=== PATIENT | male | born 1975 | race Caucasian/White ===

== ENCOUNTER 2020-01-22 07:15 | Emergency (ER) | payer OTHER, SELFPAY ==
[2020-01-22 07:22] VITALS: BP 114/75; PULSE 95; RESP 18; TEMP 37.1; O2SAT 98; BMI 17.9
--- NOTE | 2020-01-22 07:44 | XR_ITS ---
EXAMINATION: XR HIP, LEFT CLINICAL INFORMATION: Pain for one week. No trauma. COMPARISON: None TECHNIQUE: Two views of the left hip and pelvis one view. FINDINGS: LEFT HIP: Mild left hip arthritis, with acetabular rim spurring, femoral head and neck collar osteophytes. There is a transversely oriented sclerotic band extending across the femoral neck. This could be related to an undisplaced fracture plane, or could represent collar osteophytes at the femoral head and neck junction projected over this region. Cystic foci projected over the femoral neck, probably degenerative in nature. PELVIS: Mild right hip arthritis. SI joints, symphysis pubis are intact. The pelvic bones are intact. No suspicious soft tissue calcification. Visualized bowel pattern is unremarkable. IMPRESSION: 1. Mild left hip arthritis. There is a band of sclerosis extending across the femoral neck. This could be related to a fracture plane or could represent collar osteophytes projected over this region. Please clinically correlate. Further evaluation as clinically warranted. 2. Mild right hip arthritis.
--- NOTE | 2020-01-22 07:48 | ED.LOWEXIN ---
HPI - Extremity Injury (Lower) General Chief Complaint: Extremity Injury, Lower Stated Complaint: hip pain Time Seen by Provider: 01/22/20 07:44 Source: patient Mode of arrival: ambulatory Limitations: no limitations History of Present Illness HPI Narrative: Left hip pain for the past week, patient declined any recent injury or fall, patient has been walking with a cane because of the pain, patient was seen and evaluated by his primary doctor and was prescribed Flexeril patient reported is not relieving pain. Related Data Home Medications Medication Instructions Recorded Confirmed atorvastatin 20 mg tablet 20 mg PO DAILY 01/17/20 Previous Rx's Medication Instructions Recorded cyclobenzaprine 5 mg tablet 5 mg PO BEDTIME PRN #15 tab 01/17/20 ibuprofen 600 mg PO Q8H PRN #30 tab 01/22/20 Allergies Allergy/AdvReac Type Severity Reaction Status Date / Time No Known Allergies Allergy Unverified 12/22/19 15:08 [No Known Allergies*] Review of Systems Review of Systems: Yes all other systems are reviewed and are negative Neurologic: Reports Abnormal speech present [facility] Past Medical History Medical History Hypercholesteremia Social History Social History Advance Directives: No Advance Directives Information Provided: No Physical Exam Vital Signs: Vital Signs: Vital Signs Temp Pulse Resp BP Pulse Ox 01/22/20 07:22 98.8 F 95 18 114/75 98 Body Mass Index 17.9 Const: General: cooperative and healthy appearing Orientation/consciousness: oriented to person HENMT: Head: Yes normal to inspection Ears: hearing grossly normal bilaterally General nose exam: Normal external nose present Eyes: General: appearance normal, both eyes and all related structures Neck: Neck: Yes normal visual inspection Chest: Chest palpation & inspection: normal inspection of the chest Resp: Effort & Inspection: normal respiratory effort Cardio: Jugular venous distension: no JVD Rate: regular rate GI: Inspection: Yes normal to inspection Skin: General skin exam: no rashes or lesions noted Neuro: General: oriented to person Cranial nerves: Yes CN's II-XII intact bilaterally Cognition (Neuro): normal cognition Speech: Abnormal speech present Extrem: General: Yes normal to inspection and Yes full ROM Left lower extremity: normal to inspection, full ROM, normal capillary refill and no joint enlargement; no cyanosis and no edema Course Course Course Narrative: 44-year-old male sustained left hip pain for the past week not relieved by muscle relaxant prescribed by his PCP. Will get hep x-ray to rule out fracture verses arthritis , and give the patient NSAIDs. MDM - Extremity Injury (Lower) MDM Narrative Medical decision making narrative: assessment and plan. 44-year-old male with left hip pain for a week with no trauma, x-ray shows no fracture. Likely musculoskeletal will start the patient on NSAIDs and instructed to follow-up with PCP. Discharge Plan Discharge Clinical Impression: Hip strain Qualifiers: Encounter type: initial encounter Laterality: left Qualified Code(s): S76.012A - Strain of muscle, fascia and tendon of left hip, initial encounter Patient Disposition: Home, Self-Care Instructions: Musculoskeletal Pain (ED) Prescriptions: New ibuprofen 600 mg tablet 600 mg PO Q8H PRN (Reason: pain) Qty: 30 RF: 0 No Action atorvastatin 20 mg tablet 20 mg PO DAILY RF: 0 cyclobenzaprine 5 mg tablet 5 mg PO BEDTIME PRN (Reason: muscle spasm) Qty: 15 RF: 0 Referrals: Felipe Russo, [facility] [Primary Care Provider] - 2 days
[2020-01-22] MEDS: Ibuprofen 800 MG TABLET PO (07:49)
== END 2020-01-22 08:33 | disposition home or self-care (01) ==
PROVIDERS: Emergency Provider Emergency Medicine; PCP Nurse Practitioner Family
DX: S76.012A Strain of muscle, fascia and tendon of left hip, initial encounter (principal); X58.XXXA Exposure to other specified factors, initial encounter; Y93.9 Activity, unspecified; Y92.9 Unspecified place or not applicable; Y99.9 Unspecified external cause status
CPT/HCPCS: 73502; 99283

== ENCOUNTER 2020-03-30 07:48 | Emergency (ER) | payer OTHER, SELFPAY ==
[2020-03-30 08:01] VITALS: BP 124/79; PULSE 107; RESP 18; TEMP 36.6; O2SAT 98; BMI 24.0
--- NOTE | 2020-03-30 08:03 | XR_ITS ---
EXAMINATION: XR KNEE, LEFT CLINICAL INFORMATION: Knee pain COMPARISON: None TECHNIQUE: Four views of the left knee. FINDINGS: Bones and soft tissues are normal. No acute fracture or joint effusion. Alignment is anatomic. Joint spaces are well maintained. No abnormal soft tissue calcification. XR/XR knee LT 2V IMPRESSION: Unremarkable left knee exam.
--- NOTE | 2020-03-30 08:16 | ED_ITS ---
HPI - Extremity Problem General Chief complaint: Extremity Problem Stated complaint: leg pain Time Seen by Provider: 03/30/20 08:03 History of Present Illness HPI Narrative: Patient is a 44-year-old male complaining of left knee pain. Patient denies any trauma. No fever no chills no cough no congestion or upper respiratory symptoms. Been constantly using his knees. Complaining of increasing pain. There is no systemic complaints no chest pain or shortness of breath no diaphoresis. No leg swelling. No history of travel. Pain is worsened with movement. Patient is from home. History of similar pain given Motrin in the past. Related Data Previous Rx's Medication Instructions Recorded ibuprofen 600 mg PO Q8H PRN #30 tab 01/22/20 atorvastatin 20 mg tablet 20 mg PO DAILY #30 tab 03/12/20 prednisone 20 mg tablet 20 mg PO .COMPLEX #18 tab 03/26/20 Allergies Allergy/AdvReac Type Severity Reaction Status Date / Time No Known Allergies Allergy Verified 03/21/20 13:26 [No Known Allergies*] Review of Systems Review of Systems: Constitutional: No Weight loss, No Fever, No Chills, No Night Sweats, No Fatigue, No Malaise ENT/Mouth: No Hearing loss, No Ear Pain, No Nasal Congestion, No Sinus Pain, No Hoarseness, No sore throat, No Rhinorrhea, No Swallowing Difficulty Eyes: No Eye Pain, No Swelling, No Redness, No Foreign Body, No Discharge, No Vision Changes Cardiovascular: No Chest Pain, No SOB, No Dyspnea on Exertion, No Orthopnea, No Edema, No Palpitations Respiratory: No Cough, No Sputum, No Wheezing, No Smoke Exposure, No Dyspnea Gastrointestinal: No Nausea, No Vomiting, No Diarrhea, No Constipation, No abdominal Pain, No Hematochezia, No Melena Genitourinary: no irregular bleeding, No Dysuria, No Urinary Frequency, No Hematuria, No Urinary Incontinence, No Urgency, No Flank Pain, No Urinary Flow Changes, No Hesitancy Musculoskeletal: Positive pain to the left knee Skin: No Skin Lesions, No rash Neuro: No Weakness, No Numbness, No Paresthesias, No Loss of Consciousness, No Dizziness, No Headache Psych: No Anxiety/Panic, No Depression, No SI/HI/AH/VH, No Social Issues, Heme/Lymph: No Bruising, No Bleeding,No Lymphadenopathy Endocrine: No Polyuria, No Polydipsia, No Temperature Intolerance COUNTS INCLUDE 234 BEDS AT THE [facility] Past Medical History Attestation statement: The following information was validated with the patient. Medical History Hypercholesteremia Physical exam Umbilical hernia Family History Family History Father No problems noted. Mother Skin cancer Maternal Grandmother Colon cancer Social History Social History Alcohol intake: current Alcohol intake frequency: a few times a month Smoking Status: Never smoker Advance Directives: No Advance Directives Information Provided: Yes Physical Exam Vital Signs: Vital Signs: Last Vital Signs Temp 97.8 F 03/30/20 08:01 Pulse 107 H 03/30/20 08:01 Resp 18 03/30/20 08:01 BP 124/79 03/30/20 08:01 Pulse Ox 98 03/30/20 08:01 Body Mass Index 24.0 Appearance: Alert. Oriented X3. No acute distress. Eyes: Pupils equal, round and reactive to light. ENT: Pharynx normal. Neck: Normal inspection. Neck supple. No lymph nodes noted. No crepitus CVS: Normal heart rate and rhythm. Pulses normal. Normal S1 and S2 Respiratory: No respiratory distress. Breath sounds normal. No Wheezing. No rales Abdomen: Soft and nontender. No rigidity. No distention. good BS x4 Skin: Skin warm and dry. Normal skin color. Normal skin turgor. Extremities: No lower extremity edema. Neurovascular intact to all extremities. Pain on full flexion of the left knee. There is no patellar tenderness there is no medial or lateral collateral ligament tenderness. Range of motion is intact at hip and also knee. Distal pulses are intact skin is intact. Neuro: Oriented X 3. No motor deficit. No sensory deficit. Moving all extermities. No slurred speech MDM - Extremity (Nontraumatic) MDM Narrative Medical decision making narrative: X-ray showed no acute fracture. Will discharge patient home close follow-up on outpatient basis. Motrin for pain. Discharge Plan Discharge Clinical Impression: Arthritis Patient Disposition: Home, Self-Care Instructions: Arthritis (ED) Prescriptions: No Action atorvastatin 20 mg tablet 20 mg PO DAILY Qty: 30 RF: 2 ibuprofen 600 mg tablet 600 mg PO Q8H PRN (Reason: pain) Qty: 30 RF: 0 prednisone 20 mg tablet 20 mg PO .COMPLEX Qty: 18 RF: 0 Referrals: Felipe Russo FNP-BC [Primary Care Provider] - 2 days
== END 2020-03-30 09:41 | disposition home or self-care (01) ==
PROVIDERS: Emergency Provider Emergency Medicine Emergency Medical Services; PCP Nurse Practitioner Family
DX: M17.12 Unilateral primary osteoarthritis, left knee (principal); M25.562 Pain in left knee; Z79.899 Other long term (current) drug therapy
CPT/HCPCS: 73560; 99283

== ENCOUNTER 2020-04-17 06:04 | Outpatient (REF) | payer OTHER, SELFPAY ==
[2020-04-17 12:11] LABS: TSH reflex Free T4 4.16 mIU/mL (0.32-4.0)
[2020-04-17 12:21] LABS: Alanine Aminotransferase 111 U/L (0-40); Albumin Level 4.1 g/dL (3.5-5.0); Alkaline Phosphatase 105 U/L (39-117); Anion Gap 13 (12-20); Aspartate Amino Transferase 31 U/L (5-37); Bilirubin Total 0.4 mg/dL (0.0-1.0); Blood Urea Nitrogen 10 mg/dL (9-16); Calcium 9.3 mg/dL (8.4-10.2); Carbon Dioxide 30 mmol/L (22-29); Chloride 105 mmol/L (96-108); Cholesterol 142 mg/dL; Estimated Glomerular Filt Rate > 60; Glucose Fasting 81 mg/dL (60-99); HDL Cholesterol 46 mg/dL; LDL Cholesterol Calculated 66 mg/dl; Potassium 4.6 mmol/l (3.3-5.1); Sodium 143 mmol/L (135-145); Total Protein 6.5 g/dL (6.5-8.0); Triglycerides 151 mg/dL
== END 2020-04-17 06:05 | disposition home or self-care (01) ==
LOC: HO.HMGCLDS 06:04
PROVIDERS: PCP Nurse Practitioner Family; Visit Provider Nurse Practitioner Family
DX: Z00.00 Encounter for general adult medical examination without abnormal findings (principal); R74.8 Abnormal levels of other serum enzymes
CPT/HCPCS: 36415; 80053; 80061; 84439; 84443

== ENCOUNTER 2020-04-23 08:55 | Outpatient (REF) | payer OTHER, SELFPAY ==
--- NOTE | 2020-04-23 08:59 | US_ITS ---
EXAMINATION: US ABDOMEN COMPLETE CLINICAL INFORMATION: Elevated LFTs. COMPARISON: None TECHNIQUE: Real-time imaging of the abdominal viscera. FINDINGS: PANCREAS: Normal. ABDOMINAL AORTA: The proximal, mid, and distal segments are normal in caliber. INFERIOR VENA CAVA: Visualized portions are normal. LIVER: Normal. The liver is normal in size. The liver contour is normal. Parenchymal echogenicity is normal. No focal hepatic lesion. There is no intrahepatic biliary duct dilatation seen. GALLBLADDER: The gallbladder is physiologically distended. There is a 2 mm echogenic foci adjacent to the gallbladder wall measuring 2 mm. This does not move or shadow. This probably represent small gallbladder wall polyp. It is difficult to exclude a nonshadowing adherent small gallstone. Gallbladder wall is normal in thickness. There is no pericholecystic fluid. COMMON BILE DUCT: Normal in caliber measuring 0.45 cm in diameter. RIGHT KIDNEY: Normal. No hydronephrosis. No renal calculi or focal parenchymal lesions. The kidney measures 10.4 cm in maximum dimension. LEFT KIDNEY: Normal. No hydronephrosis. No renal calculi or focal parenchymal lesions. The kidney measures 11.3 cm in maximum dimension. SPLEEN: Normal. The spleen measures 10.5 cm in maximum dimension. FREE FLUID: None. US/US abdomen complete IMPRESSION: Small echogenic nonmobile nonshadowing 2 mm density adjacent to the gallbladder wall probably representing a gallbladder wall polyp. Otherwise unremarkable exam.
== END 2020-04-23 08:56 | disposition home or self-care (01) ==
LOC: HO.HMGCX 08:55
PROVIDERS: PCP Nurse Practitioner Family; Visit Provider Nurse Practitioner Family
DX: R74.8 Abnormal levels of other serum enzymes (principal)
CPT/HCPCS: 76700

== ENCOUNTER 2020-06-26 12:16 | Outpatient (REF) | payer OTHER, SELFPAY ==
--- NOTE | ~2020-06-26 | XR_ITS ---
EXAMINATION: XR KNEE, RIGHT CLINICAL INFORMATION: M25.461 - Effusion, right knee COMPARISON: None TECHNIQUE: Four views of the right knee. FINDINGS: There is no fracture or dislocation or destructive process. No joint narrowing or erosive change or chondrocalcinosis. There is no visible suprapatellar effusion. Hoffa's fat pad appears normal. XR/XR knee RT 4V IMPRESSION: Normal right knee.
[2020-06-26 15:17] LABS: TSH reflex Free T4 1.79 uIU/mL (0.32-4.0)
[2020-06-27 08:45] LABS: HBsAGNum1 0.19 S/CO (0.00-0.99); Hepatitis A Antibody IgM 0.13 Index (0-0.79); Hepatitis B Surface Antigen Negative (Negative); ~Hepatitis A Antibody IgM Nonreactive (Nonreactive)
[2020-06-27 09:03] LABS: HBc Num1 0.04 S/CO (0.00-0.79); Hepatitis B Core Antibody Nonreactive (Nonreactive); ~HepC Num1 0.12 S/CO (0.00-0.79); ~Hepatitis B Surface Antibody NONREACTIVE (Nonreactive); ~Hepatitis C Antibody Nonreactive (Nonreactive)
[2020-06-27 21:27] LABS: Thyroid Peroxidase Antibodies 1 IU/mL (<9)
== END 2020-06-26 12:17 | disposition home or self-care (01) ==
LOC: HO.HMGCX 12:16
PROVIDERS: PCP Nurse Practitioner Family; Visit Provider Nurse Practitioner Family
DX: M25.461 Effusion, right knee (principal); R79.89 Other specified abnormal findings of blood chemistry; R74.8 Abnormal levels of other serum enzymes
CPT/HCPCS: 36415; 73564; 84443; 86376; 86704; 86706; 86709; 86803; 87340

== ENCOUNTER → 2020-07-13 13:40 | Outpatient (BNVA) | payer OTHER, SELFPAY | PROVIDERS: PCP Nurse Practitioner Family; Visit Provider Physician Assistant | DX: M17.12 Unilateral primary osteoarthritis, left knee (principal) | CPT/HCPCS: 20610; 99202 ==

== ENCOUNTER 2020-07-22 16:51 | Emergency (ER) | payer OTHER, SELFPAY ==
[2020-07-22 16:59] VITALS: BP 115/67; PULSE 90; RESP 18; TEMP 37.2; O2SAT 99; BMI 22.6
--- NOTE | 2020-07-22 17:40 | ED.EXTPRO ---
HPI - Extremity Problem General Chief complaint: Extremity Problem Stated complaint: leg pain Source: patient and family Mode of arrival: ambulatory Limitations: no limitations History of Present Illness HPI Narrative: 44-year-old male with known history of arthritis presents for left-sided hip and thigh pain. States that was given cyclobenzaprine and did have physical therapy in the past which helped him. He has run out of medications, does not stay to have any injuries, falls, denies fevers, chills, chest pain or pressure, palpitations, symptoms indicating cauda equina, dysuria, hematuria, abdominal pain, abdominal distention, and loss of sensation. MD Complaint: extremity pain Onset (ago): month(s) Pain Consistency: constant Location: left and lower extremity Quality: aching Relieving factors: nothing Exacerbating factors: range of motion and weight bearing Associated symptoms: denies other symptoms Related Data Previous Rx's Medication Instructions Recorded lidocaine 5 % topical patch 1 patch TOPICAL DAILY #15 ea 05/29/20 naproxen 500 mg tablet 500 mg PO BID PRN #60 tab 05/29/20 atorvastatin 20 mg tablet 20 mg PO DAILY #30 tab 06/22/20 prednisone 20 mg tablet 20 mg PO .COMPLEX #18 tab 07/02/20 cyclobenzaprine 10 mg PO BEDTIME PRN #10 tab 07/22/20 diclofenac sodium [Arthritis Pain 4 g TOPICAL BID PRN #100 g 07/22/20 (diclofenac)] ibuprofen 600 mg PO Q8H PRN #90 tab 07/22/20 Allergies Allergy/AdvReac Type Severity Reaction Status Date / Time No Known Allergies Allergy Verified 07/13/20 13:50 [No Known Allergies*] Review of Systems Review of Systems: Constitutional: No Fever, No Chills ENT/Mouth: No Ear Pain, No Hoarseness, No sore throat Eyes: No Eye Pain, No Swelling, No Redness, No Foreign Body Cardiovascular: No Chest Pain, No SOB Respiratory: No Cough, No Dyspnea Gastrointestinal: No Nausea, No Vomiting, No Diarrhea, No abdominal Pain Genitourinary: No Dysuria, No Hematuria Musculoskeletal: positive left hip and left thigh pain, No Myalgias, No Joint Swelling Skin: No Skin lacerations, No rash Neuro: No Weakness, No Numbness, No Paresthesias, No Loss of Consciousness, No Dizziness, No Headache Psych: No Anxiety/Panic, No Depression Heme/Lymph: no easy bruising, no Lymphadenopathy Endocrine: No Polyuria, No Polydipsia Yes all other systems are reviewed and are negative [facility] Past Medical History Attestation statement: The following information was validated with the patient. Source: old records reviewed Medical History Hypercholesteremia Physical exam Umbilical hernia Family History Family History Father No problems noted. Mother Skin cancer Maternal Grandmother Colon cancer Social History Social History Alcohol intake: current Alcohol intake frequency: a few times a month Smoking Status: Never smoker Advance Directives: No Advance Directives Information Provided: No Current occupational status: employed Current occupation: maintenance Physical Exam Vital Signs: Vital Signs: Last Vital Signs Temp 98.9 F 07/22/20 16:59 Pulse 90 07/22/20 16:59 Resp 18 07/22/20 16:59 BP 115/67 07/22/20 16:59 Pulse Ox 99 07/22/20 16:59 Body Mass Index 22.6 Appearance: Alert. Oriented X3. No acute distress. Eyes: Pupils equal, round and reactive to light. ENT: Pharynx normal. Neck: Normal inspection. Neck supple. CVS: Normal heart rate and rhythm. Pulses normal. Respiratory: No respiratory distress. Breath sounds normal. Abdomen: Soft and nontender. Skin: Skin warm and dry. Normal skin color. Normal skin turgor. Extremities: No lower extremity edema. Full range of motion to all extremities, strength 5/5, gait awkward per baseline but balanced Neuro: No motor deficit. No sensory deficit. Cranial nerves 2-12 intact Course Course Course Narrative: 44-year-old male with known arthritis presents with left hip and thigh pain. Patient does have full range of motion to hip, knee, ankle, strength 5/5. Patient denies difficulty urinating, denies testicular pain, penile pain, penile discharge, or trauma. Denies pain or bleeding with bowel movements. No abdominal pain, abdominal exam is negative. No edema, no calf tenderness, at this time I do not feel patient is at risk for DVT. Does not smoke, no history of cancer, not on any hormone replacements, no recent surgical history or travel. Plan of care is for Motrin, cyclobenzaprine, referral to Pain Management and Orthopedics. Patient's brother is with him, patient's brother verbalized understanding of and agrees to plan of care. MDM - Extremity (Nontraumatic) MDM Narrative Medical decision making narrative: Arthritis Discharge Plan Discharge Clinical Impression: Arthritis Patient Disposition: Home, Self-Care Instructions: Arthritis (ED) Additional Instructions: You were evaluated for hip pain. You do have arthritis, please follow-up with Pain Management as you will need physical therapy for further care. If pain persists please follow-up with orthopedics for evaluation. I prescribed diclofenac ointment, please apply this to your hip and knee as needed twice a day. I prescribed a muscle relaxer, cyclobenzaprine. Take this medication at night. This medication can increase risk for falls, cause drowsiness, and delay reaction time. Please use caution when taking this medication. Use Motrin as needed every 8 hours for pain. You may alternate with Tylenol 650 mg. Thank you for choosing this emergency department for evaluation. Please follow-up with primary care physician as needed. Return to the emergency department for any new, concerning, or worsening symptoms. Prescriptions: New diclofenac sodium [Arthritis Pain (diclofenac)] 1 % gel 4 g topical BID PRN (Reason: pain) Qty: 100 RF: 0 cyclobenzaprine 10 mg tablet 10 mg PO BEDTIME PRN (Reason: muscle spasm) Qty: 10 RF: 0 ibuprofen 600 mg tablet 600 mg PO Q8H PRN (Reason: pain) Qty: 90 RF: 0 No Action atorvastatin 20 mg tablet 20 mg PO DAILY Qty: 30 RF: 2 prednisone 20 mg tablet 20 mg PO .COMPLEX Qty: 18 RF: 0 naproxen 500 mg tablet 500 mg PO BID PRN (Reason: pain) Qty: 60 RF: 0 lidocaine 5 % adhesive patch,medicated 1 patch topical DAILY Qty: 15 RF: 0 Referrals: Artemio Rutledge MD [Physician] - 2 days (Arthritis) Jesus Alberto Armando PA-C [Physician [employer]] - 2 days (Arthritis) Stand Alone Forms: Work/School Release Interventions: ED Discharge Assessment Last Done: 07/22/20 18:17 Discharge Date/Time: 07/22/20 18:10
[2020-07-22] MEDS: Cyclobenzaprine HCl 10 MG TABLET PO (18:10)
[2020-07-22] MEDS: Acetaminophen 325 MG TABLET 650 MG PO (18:11)
== END 2020-07-22 18:10 | disposition home or self-care (01) ==
PROVIDERS: Emergency Provider Internal Medicine; PCP Nurse Practitioner Family
DX: M16.12 Unilateral primary osteoarthritis, left hip (principal); M17.12 Unilateral primary osteoarthritis, left knee; M25.552 Pain in left hip; M25.562 Pain in left knee
CPT/HCPCS: 99283

== ENCOUNTER → 2020-08-02 14:12 | Outpatient (BNVA) | payer OTHER, SELFPAY | PROVIDERS: PCP Nurse Practitioner Family; Visit Provider Physician Assistant | DX: M70.72 Other bursitis of hip, left hip (principal) | CPT/HCPCS: 99212 ==

== ENCOUNTER 2020-08-10 07:51 | Outpatient (REF) | payer OTHER, SELFPAY ==
--- NOTE | ~2020-08-10 | XR_ITS ---
EXAMINATION: AP PELVIS AND RIGHT HIP. CLINICAL INFORMATION: Hip pain. COMPARISON: None TECHNIQUE: AP pelvis one view. Right hip 2 views. FINDINGS: AP pelvis: There is normal bilateral hip joint and SI joint space. There is bilateral hip periarticular spurring but no bony erosive changes, acute fracture or loose bodies. The pelvis appears unremarkable. The soft tissues appear unremarkable. XR/XR hip RT min 2V IMPRESSION: Mild bilateral hip periarticular spurring. No visible acute fracture or dislocation involving right hip or AP pelvis.
--- NOTE | ~2020-08-10 | XR_ITS ---
EXAMINATION: AP PELVIS AND RIGHT HIP. CLINICAL INFORMATION: Hip pain. COMPARISON: None TECHNIQUE: AP pelvis one view. Right hip 2 views. FINDINGS: AP pelvis: There is normal bilateral hip joint and SI joint space. There is bilateral hip periarticular spurring but no bony erosive changes, acute fracture or loose bodies. The pelvis appears unremarkable. The soft tissues appear unremarkable. XR/XR pelvis 1-2V IMPRESSION: Mild bilateral hip periarticular spurring. No visible acute fracture or dislocation involving right hip or AP pelvis.
== END 2020-08-10 07:52 | disposition home or self-care (01) ==
LOC: HO.HOSX 07:51
PROVIDERS: Visit Provider Physician Assistant
DX: M25.551 Pain in right hip (principal); M70.61 Trochanteric bursitis, right hip
CPT/HCPCS: 20610; 72170; 73502; 99212; J1040

== ENCOUNTER 2020-08-14 08:52 | Outpatient (REF) | payer OTHER, SELFPAY ==
--- NOTE | ~2020-08-14 | XR_ITS ---
EXAMINATION: XR HAND WRIST, RIGHT CLINICAL INFORMATION: M79.89 - Other specified soft tissue disorders COMPARISON: None TECHNIQUE: The right hand and wrist are imaged together in 3 large [id number] images. There are total of 3 views. FINDINGS: The bony mineralization appears normal. There is no periarticular demineralization. No joint narrowing or erosive change or chondrocalcinosis. The ulnar variance is neutral. No fracture or dislocation. No periostitis. There is questionable soft tissue swelling at the third finger PIP joint which may be best correlated with patient's symptoms and clinical exam. There is flexion fifth finger DIP joint with probable small dorsal spur at base fifth distal phalanx. XR/XR hand wrist RT IMPRESSION: 1. Flexion fifth finger DIP joint with probable dorsal spur base distal phalanx. 2. Question mild periarticular soft tissue swelling third finger PIP joint region. Clinically correlate. 3. No fracture, destructive process, joint narrowing or erosive change.
[2020-08-14 11:34] LABS: Hematocrit 40.9 % (42-52); Hemoglobin 13.2 g/dl (14.0-18.0); Mean Corpuscular HGB Conc 32.3 g/dl (31.0-36.0); Mean Corpuscular Hemoglobin 29.1 pg (27.0-33.0); Mean Corpuscular Volume 90.3 fL (80-98); Mean Platelet Volume 11.1 fL (9.4-12.4); Platelet Count 488 X10*3/uL (160-400); Red Blood Count 4.53 X10*6/uL (4.60-5.80); Red Cell Distribution Width 14.7 % (11.0-16.0); White Blood Count 10.3 X10*3/uL (4.8-10.8)
[2020-08-14 11:50] LABS: Blood Urea Nitrogen 11 mg/dL (9-16); Estimated Glomerular Filt Rate > 60
[2020-08-14 12:10] LABS: Uric Acid 4.5 mg/dL (3.4-7.0)
== END 2020-08-14 08:53 | disposition home or self-care (01) ==
LOC: HO.HMGCX 08:52
PROVIDERS: PCP Nurse Practitioner Family; Visit Provider Nurse Practitioner Family
DX: M79.89 Other specified soft tissue disorders (principal); R23.8 Other skin changes
CPT/HCPCS: 36415; 73110; 73130; 82565; 84520; 84550; 85027

== ENCOUNTER → 2020-08-21 14:44 | Outpatient (BNVA) | payer OTHER, SELFPAY | PROVIDERS: PCP Nurse Practitioner Family; Visit Provider Nurse Practitioner Family | DX: M70.61 Trochanteric bursitis, right hip (principal); M70.72 Other bursitis of hip, left hip | CPT/HCPCS: 99202 ==

== ENCOUNTER 2020-09-10 14:30 | Outpatient (RCR) | payer OTHER, SELFPAY ==
--- NOTE | 2020-12-14 13:59 | MHC.PT.DC ---
[facility] [place] [facility] [place] Office [place] Office [address] Heidi Coppola [address] [facility] [phone] F: [phone] F: [phone] F: [phone] F: [phone] Physical Therapy Discharge Report Diagnosis: R hip trochanteric bursitis Date of Surgery: Date of Evaluation: 09/10/20 Date of Discharge: 10/04/20 Treatments to Date: 1 Cancellations to Date: No Shows to Date: Discharge Status: Achieved Goals Improved Function Discharge Summary: Pt called to self DC after initial visit stating he was pain free. Electronically signed by: Sher Angeles PT. Please sign and return to therapist. Thank you for your referral.
== END 2020-12-14 13:57 | disposition home or self-care (01) ==
LOC: HO.PTCHIC 14:30
PROVIDERS: PCP Nurse Practitioner Family; Visit Provider Physician Assistant
DX: M70.61 Trochanteric bursitis, right hip (principal)
CPT/HCPCS: 97110; 97161

== ENCOUNTER 2020-10-24 08:33 | Outpatient (REF) | payer OTHER, SELFPAY ==
--- NOTE | ~2020-10-24 | US_ITS ---
EXAMINATION: US ABDOMEN LIMITED CLINICAL INFORMATION: Cholesterolosis of the gallbladder. COMPARISON: Ultrasound abdomen complete 04/23/2020. TECHNIQUE: Real-time imaging of the right upper quadrant abdominal viscera. FINDINGS: PANCREAS: Normal. LIVER: Normal. The liver is normal in size. The liver contour is normal. Parenchymal echogenicity is normal. No focal hepatic lesion. There is no intrahepatic biliary duct dilatation seen. GALLBLADDER: The gallbladder is physiologically distended without evidence of stones, sludge, polyps, wall thickening or pericholecystic fluid. There is a small ring down artifact seen in the anterior gallbladder wall suggestive of mild adenomyomatosis of the gallbladder wall. COMMON BILE DUCT: Normal in caliber measuring 0.45 cm in diameter. RIGHT KIDNEY: Normal. No hydronephrosis. No renal calculi or focal parenchymal lesions. The kidney measures 11.5 cm in maximum dimension. FREE FLUID: None. US/US abdomen limited IMPRESSION: Mild adenomyomatosis of the gallbladder wall.
[2020-10-24 11:12] LABS: MANUAL DIFF FLAG NO
[2020-10-24 11:21] LABS: Basophils Absolute Auto 0.1 X10*3/uL (0.0-0.2); Basophils Percent Auto 0.7 % (0-2); Eosinophils Absolute Auto 0.2 X10*3/uL (0.0-0.4); Eosinophils Percent Auto 3.4 % (0-4); Hematocrit 38.2 % (42-52); Hemoglobin 12.6 g/dl (14.0-18.0); Imm Gran Abs Auto 0.03 X10*3/uL (0.00-0.03); Imm Gran Pct Auto 0.4 % (0.0-0.4); Lymphocytes Absolute Auto 1.7 X10*3/uL (1.2-4.9); Lymphocytes Percent Auto 25.8 % (20-40); Mean Corpuscular Hemoglobin 29.7 pg (27.0-33.0); Mean Corpuscular Volume 90.1 fL (80-98); Mean Platelet Volume 10.6 fL (9.4-12.4); Monocytes Absolute Auto 0.5 X10*3/uL (0.1-1.2); Monocytes Percent Auto 7.5 % (2-11); Neutrophils Absolute Auto 4.1 X10*3/uL (2.0-8.3); Neutrophils Percent Auto 62.2 % (45-73); Platelet Count 305 X10*3/uL (160-400); Red Blood Count 4.24 X10*6/uL (4.60-5.80); White Blood Count 6.7 X10*3/uL (4.8-10.8)
[2020-10-24 11:30] LABS: Alanine Aminotransferase 18 U/L (0-40); Albumin Level 4.3 g/dL (3.5-5.0); Alkaline Phosphatase 83 U/L (39-117); Anion Gap 12 (12-20); Aspartate Amino Transferase 18 U/L (5-37); Bilirubin Total 0.6 mg/dL (0.0-1.0); Blood Urea Nitrogen 9 mg/dL (9-16); Calcium 9.4 mg/dL (8.4-10.2); Carbon Dioxide 26 mmol/L (22-29); Chloride 107 mmol/L (96-108); Cholesterol 124 mg/dL; Estimated Glomerular Filt Rate > 60; Glucose Fasting 79 mg/dL (60-99); HDL Cholesterol 33 mg/dL; LDL Cholesterol Calculated 77 mg/dl; Potassium 3.8 mmol/L (3.3-5.1); Sodium 141 mmol/L (135-145); Total Protein 6.5 g/dL (6.5-8.0); Triglycerides 71 mg/dL
[2020-10-24 11:56] LABS: TSH reflex Free T4 1.28 uIU/mL (0.32-4.0)
== END 2020-10-24 08:34 | disposition home or self-care (01) ==
LOC: HO.HMGCX 08:33
PROVIDERS: PCP Nurse Practitioner Family; Visit Provider Nurse Practitioner Family
DX: K82.4 Cholesterolosis of gallbladder (principal); E78.5 Hyperlipidemia, unspecified
CPT/HCPCS: 36415; 76705; 80053; 80061; 84443; 85025

== ENCOUNTER 2020-11-07 16:47 | Outpatient (REF) | payer OTHER, SELFPAY ==
[2020-11-08 09:23] LABS: FIT Date 1 NO DATE GIVEN; FIT Date 2 NO DATE GIVEN; FIT Int Ctl YES; FIT1 NEGATIVE (NEGATIVE); FIT2 NEGATIVE (NEGATIVE)
== END 2020-11-07 16:48 | disposition home or self-care (01) ==
LOC: HO.LNP 16:47
PROVIDERS: Visit Provider Nurse Practitioner Family
DX: D64.9 Anemia, unspecified (principal)
CPT/HCPCS: 82274

== ENCOUNTER 2020-12-02 06:42 | Emergency (ER) | payer OTHER, SELFPAY ==
--- NOTE | ~2020-12-02 | XR_ITS ---
EXAMINATION: XR FOOT, LEFT CLINICAL INFORMATION: Left foot pain. COMPARISON: None TECHNIQUE: AP, lateral, and oblique views of the left foot. FINDINGS: The bones and soft tissues are normal. No fracture. Alignment is anatomic. Joint spaces are maintained. XR/XR foot LT min 3V IMPRESSION: Unremarkable radiographic appearance of the left foot.
[2020-12-02 06:45] VITALS: BP 119/75; PULSE 105; RESP 16; TEMP 36.8; O2SAT 97; BMI 17.9
[2020-12-02 07:54] LABS: MANUAL DIFF FLAG NO
[2020-12-02 07:56] LABS: Basophils Percent Auto 0.4 % (0-2); Eosinophils Absolute Auto 0.1 X10*3/uL (0.0-0.4); Hematocrit 42.3 % (42-52); Hemoglobin 14.2 g/dl (14.0-18.0); Imm Gran Abs Auto 0.05 X10*3/uL (0.00-0.03); Imm Gran Pct Auto 0.5 % (0.0-0.4); Lymphocytes Absolute Auto 1.7 X10*3/uL (1.2-4.9); Lymphocytes Percent Auto 15.6 % (20-40); Mean Corpuscular HGB Conc 33.6 g/dl (31.0-36.0); Mean Corpuscular Hemoglobin 29.9 pg (27.0-33.0); Mean Corpuscular Volume 89.1 fL (80-98); Mean Platelet Volume 10.4 fL (9.4-12.4); Monocytes Absolute Auto 1.1 X10*3/uL (0.1-1.2); Monocytes Percent Auto 10.2 % (2-11); Neutrophils Absolute Auto 7.8 X10*3/uL (2.0-8.3); Neutrophils Percent Auto 72.3 % (45-73); Platelet Count 292 X10*3/uL (160-400); Red Blood Count 4.75 X10*6/uL (4.60-5.80); Red Cell Distribution Width 13.6 % (11.0-16.0); White Blood Count 10.8 X10*3/uL (4.8-10.8)
--- NOTE | 2020-12-02 07:59 | ED.EXTPRO ---
HPI - Extremity Problem General Chief complaint: Extremity Problem Stated complaint: left foot injury Time Seen by Provider: 12/02/20 07:37 Source: patient Mode of arrival: ambulatory Limitations: no limitations History of Present Illness HPI Narrative: This is a 45 years old male presented ambulatory to the emergency department with chief complaint noted left foot pain. He has no history of trauma in the foot, denies any fever denies any chills. Pain is been there for about 2 days the foot has been red Complaint: extremity pain Onset (ago): day(s) Severity scale (1-10): 2 Quality: dull Radiation: none Relieving factors: nothing Exacerbating factors: nothing Related Data Previous Rx's Medication Instructions Recorded atorvastatin 20 mg tablet 20 mg PO DAILY #30 tab 06/22/20 ibuprofen 600 mg tablet 600 mg PO Q8H PRN #90 tab 07/22/20 cephalexin 500 mg capsule 500 mg PO Q8H #21 cap 12/02/20 ibuprofen 600 mg tablet 600 mg PO TID PRN #20 tab 12/02/20 Allergies Allergy/AdvReac Type Severity Reaction Status Date / Time No Known Allergies Allergy Verified 12/02/20 06:45 [No Known Allergies*] Review of Systems Review of Systems: Yes all other systems are reviewed and are negative Constitutional: Constitutional: Denies fever(s) Cardiovascular: Cardiovascular: Reports no additional cardiovascular complaints Respiratory: Respiratory: Reports no additional respiratory complaints Gastrointestinal: Gastrointestinal: Reports no additional gastrointestinal complaints Neurologic: Reports system reviewed and no additional complaints, except as documented PMFSH Past Medical History Medical History Hypercholesteremia Physical exam Umbilical hernia Family History Family History Father No problems noted. Mother Skin cancer Maternal Grandmother Colon cancer Social History Social History Alcohol intake: current Alcohol intake frequency: a few times a month Advance Directives: Yes Advance Directives Information Provided: Yes Advance Directives on File: No Current occupational status: employed Current occupation: maintenance Physical Exam Vital Signs: Vital Signs: Last Vital Signs Temp 98.3 F 12/02/20 06:45 Pulse 105 H 12/02/20 06:45 Resp 16 12/02/20 06:45 BP 119/75 12/02/20 06:45 Pulse Ox 97 12/02/20 06:45 Body Mass Index 17.9 Const: General: cooperative, comfortable, no acute distress, well developed, alert and awake Orientation/consciousness: oriented to person, oriented to place, oriented to time and patient oriented x3 HENMT: Head: Yes normal to inspection Ears: hearing grossly normal bilaterally General nose exam: Normal external nose present Neck: Neck: Yes normal visual inspection, Yes full ROM and Yes no lymphadenopathy Chest: Chest palpation & inspection: normal inspection of the chest Resp: Auscultation: clear to auscultation bilaterally Cardio: Jugular venous distension: no JVD Rate: regular rate Rhythm: regular rhythm GI: Inspection: Yes normal to inspection Palpation (GI): Soft to palpation, not firm, nontender and no guarding Skin: General skin exam: no rashes or lesions noted Rashes: no rashes Trauma: no lacerations or abrasions Neuro: General: oriented to person, oriented to place, oriented to time and patient oriented x3 Extrem: Other: History of in the examination shows redness in the dorsal aspect of the foot more in the left there is no deformity there is no swelling Course Course Course Narrative: Patient remained hemodynamically stable his white count is normal his x-rays negative, I do think that he has cellulitis of the foot , I will start the patient on p.o. antibiotic I told him to stay off the foot and to return to the emergency department if he has a fever or if he is worse MDM - Extremity (Nontraumatic) Lab Data Result diagrams: 12/02/20 07:49 12/02/20 07:49 Labs: Lab Results 12/02/20 12/02/20 12/02/20 Range/Units 07:49 07:49 07:49 WBC 10.8 (4.8-10.8) X10*3/uL RBC 4.75 (4.60-5.80) X10*6/uL Hgb 14.2 (14.0-18.0) g/dl Hct 42.3 (42-52) % MCV 89.1 (80-98) fL MCH 29.9 (27.0-33.0) pg MCHC 33.6 (31.0-36.0) g/dl RDW 13.6 (11.0-16.0) % Plt Count 292 (160-400) X10*3/uL MPV 10.4 (9.4-12.4) fL Immature Gran % (Auto) 0.5 H (0.0-0.4) % Neut % (Auto) 72.3 (45-73) % Lymph % (Auto) 15.6 L (20-40) % Terrell % (Auto) 10.2 (2-11) % Eos % (Auto) 1.0 (0-4) % Baso % (Auto) 0.4 (0-2) % Lymph # (Auto) 1.7 (1.2-4.9) X10*3/uL Terrell # (Auto) 1.1 (0.1-1.2) X10*3/uL Eos # (Auto) 0.1 (0.0-0.4) X10*3/uL Baso # (Auto) 0.0 (0.0-0.2) X10*3/uL Abs Immat Gran (auto) 0.05 H (0.00-0.03) X10*3/uL Absolute Neuts (auto) 7.8 (2.0-8.3) X10*3/uL Absolute Nucleated RBC 0.000 (0.0-0.012) X10*3/uL Nucleated RBC % (auto) 0.0 (0.0-0.2) /100WBC ESR 28 H (0-15) MM/HR Sodium 139 (135-145) mmol/L Potassium 4.4 (3.3-5.1) mmol/L Chloride 106 (96-108) mmol/L Carbon Dioxide 25 (22-29) mmol/L Anion Gap 12 (12-20) BUN 7 L (9-16) mg/dL Creatinine 0.87 (0.5-1.4) mg/dL Estim Creat Clear Calc 95.2 Estimated GFR > 60 Random Glucose 117 H (60-115) mg/dL Calcium 9.6 (8.4-10.2) mg/dL Total Bilirubin 0.5 (0.0-1.0) mg/dL AST 29 D (5-37) U/L ALT 26 (0-40) U/L Alkaline Phosphatase 89 (39-117) U/L Total Protein 7.0 (6.5-8.0) g/dL Albumin 4.5 (3.5-5.0) g/dL Imaging Data foot xray: My impression: EXAMINATION: XR FOOT, LEFT CLINICAL INFORMATION: Left foot pain.? COMPARISON: None? TECHNIQUE: AP, lateral, and oblique views of the left foot. FINDINGS: The bones and soft tissues are normal. No fracture. Alignment is anatomic. Joint spaces are maintained.? XR/XR foot LT min 3V IMPRESSION: Unremarkable radiographic appearance of the left foot. Dictated By: BERNIE SNYDER MD Signed By: <Electronically signed by BERNIE SNYDER MD in OV> 12/02/20 0749 Discharge Plan Discharge Clinical Impression: Cellulitis of foot Patient Disposition: Home, Self-Care Instructions: Cellulitis (ED) Prescriptions: New cephalexin 500 mg capsule 500 mg PO Q8H Qty: 21 RF: 0 ibuprofen 600 mg tablet 600 mg PO TID PRN (Reason: pain) Qty: 20 RF: 0 No Action atorvastatin 20 mg tablet 20 mg PO DAILY Qty: 30 RF: 2 ibuprofen 600 mg tablet 600 mg PO Q8H PRN (Reason: pain) Qty: 90 RF: 0 Referrals: Felipe Russo, CHIEF LENDING OFFICER-[facility] [Primary Care Provider] - 2 days Stand Alone Forms: Work/School Release
[2020-12-02 08:20] LABS: Alanine Aminotransferase 26 U/L (0-40); Albumin Level 4.5 g/dL (3.5-5.0); Alkaline Phosphatase 89 U/L (39-117); Anion Gap 12 (12-20); Aspartate Amino Transferase 29 U/L (5-37); Bilirubin Total 0.5 mg/dL (0.0-1.0); Blood Urea Nitrogen 7 mg/dL (9-16); Calcium 9.6 mg/dL (8.4-10.2); Carbon Dioxide 25 mmol/L (22-29); Chloride 106 mmol/L (96-108); Creatinine Clr Calc Pharmacy 95.2; Estimated Glomerular Filt Rate > 60; Glucose Random 117 mg/dL (60-115); Potassium 4.4 mmol/L (3.3-5.1); Sodium 139 mmol/L (135-145)
[2020-12-02 08:34] LABS: Erythrocyte Sedimentation Rate 28 MM/HR (0-15)
== END 2020-12-02 09:08 | disposition home or self-care (01) ==
PROVIDERS: Emergency Provider Emergency Medicine; PCP Nurse Practitioner Family
DX: L03.116 Cellulitis of left lower limb (principal); M79.672 Pain in left foot; Z79.899 Other long term (current) drug therapy
CPT/HCPCS: 36415; 73630; 80053; 85025; 85652; 99283

== ENCOUNTER 2021-02-06 08:42 | Outpatient (REF) | payer OTHER, SELFPAY ==
--- NOTE | ~2021-02-06 | XR_ITS ---
EXAMINATION: XR ANKLE, LEFT CLINICAL INFORMATION: Pain in the left ankle COMPARISON: 12/02/2020 TECHNIQUE: AP, lateral, and mortise views of the left ankle. FINDINGS: No fracture or dislocation. The ankle mortise is congruent. Circumferential soft tissue swelling. No ankle joint effusion. XR/XR ankle LT min 3V IMPRESSION: Diffuse soft tissue swelling. No osseous abnormality.
== END 2021-02-06 08:43 | disposition home or self-care (01) ==
LOC: HO.HMGCX 08:42
PROVIDERS: Visit Provider Nurse Practitioner Family
DX: M25.572 Pain in left ankle and joints of left foot (principal)
CPT/HCPCS: 73610

== ENCOUNTER 2021-03-04 12:09 | Outpatient (REF) | payer OTHER, SELFPAY ==
--- NOTE | ~2021-03-04 | XR_ITS ---
EXAMINATION: XR SHOULDER, LEFT CLINICAL INFORMATION: Pain in shoulder. COMPARISON: 06/08/2019 TECHNIQUE: Three views of the left shoulder. FINDINGS: There is some minimal cortical irregularity irregularity at the greater tuberosity which can be a secondary sign seen with rotator cuff tendinopathy. These findings appear slightly more prominent than in 2020. The bones and soft tissues are otherwise normal. No fracture. Glenohumeral and acromioclavicular alignment is anatomic with normal joint space. No abnormal soft tissue calcifications. XR/XR shoulder LT min 2V IMPRESSION: Question of some minimal cortical irregularity at the greater tuberosity which may be suggestive of rotator cuff disease.
== END 2021-03-04 12:10 | disposition home or self-care (01) ==
LOC: HO.HOSX 12:09
PROVIDERS: Visit Provider Orthopaedic Surgery
DX: M25.512 Pain in left shoulder (principal)
CPT/HCPCS: 73030; 99202

== ENCOUNTER → 2021-08-14 11:46 | Outpatient (RCR) | payer OTHER, SELFPAY ==
--- NOTE | 2020-06-26 13:30 | MHC.PT.DC ---
[facility] [place] Office [place] Office [place] Office [address] Heidi Coppola [address] [phone] F: [phone] F: [phone] F: [phone] F: [phone] Physical Therapy Discharge Report Diagnosis: tendonitis of R shoulder. Date of Surgery: Date of Evaluation: 06/11/20 Date of Discharge: 06/26/20 Treatments to Date: 3 Cancellations to Date: 0 No Shows to Date: 0 Discharge Status: Achieved Goals Independent with HEP Discharge Summary: Good damon for initial exercises; requires postural cues. Pt attended his initial eval citing he had not had shoulder pain for > 2 weeks. Reports pain meds seemed to have worked. Pt attended 2 therapy apts following to assess trial of basic HEP and his symptoms. Pt continues to report no pain and comfort with all work and home tasks. Pt in agreement with DC as he is I with a basic home program and is symptom free. Electronically signed by: Sher Angeles PT. Please sign and return to therapist. Thank you for your referral.
== END | disposition home or self-care (01) ==
LOC: HO.PTCHIC 06-11 13:21
PROVIDERS: PCP Nurse Practitioner Family; Visit Provider Nurse Practitioner Family
DX: M77.9 Enthesopathy, unspecified (principal)
CPT/HCPCS: 97110; 97161

== ENCOUNTER 2022-06-14 06:30 | Outpatient (REF) | payer OTHER, SELFPAY ==
[2022-06-14 11:19] LABS: MANUAL DIFF FLAG NO
[2022-06-14 11:20] LABS: Appearance Urine Clear; Color Urine Yellow; Glucose Urine UA Negative (Negative); Leukocyte Esterase Urine Negative (Negative); Nitrite Urine Negative (Negative); PH 7.5 (5.0-9.0); Specific Gravity - Urine 1.025 (1.005-1.025); Urine Blood Negative (Negative); Urine Ketones Trace mg/dL (Negative); Urine Protein Negative (Neg-Trace)
[2022-06-14 11:27] LABS: Basophils Absolute Auto 0.1 X10*3/uL (0.0-0.2); Basophils Percent Auto 0.9 % (0-2); Eosinophils Absolute Auto 0.4 X10*3/uL (0.0-0.4); Eosinophils Percent Auto 5.6 % (0-4); Hematocrit 48.5 % (42.0-52.0); Hemoglobin 15.9 g/dl (14.0-18.0); Imm Gran Abs Auto 0.03 X10*3/uL (0.00-0.03); Imm Gran Pct Auto 0.4 % (0.0-0.4); Lymphocytes Absolute Auto 2.2 X10*3/uL (1.2-4.9); Lymphocytes Percent Auto 29.5 % (20-40); Mean Corpuscular HGB Conc 32.8 g/dl (31.0-36.0); Mean Corpuscular Hemoglobin 30.2 pg (27.0-33.0); Mean Platelet Volume 11.8 fL (9.4-12.4); Monocytes Absolute Auto 0.9 X10*3/uL (0.1-1.2); Monocytes Percent Auto 11.6 % (2-11); Neutrophils Absolute Auto 3.9 x10*3/uL (2.0-8.3); Platelet Count 265 X10*3/uL (160-400); Red Blood Count 5.27 X10*6/uL (4.60-5.80); Red Cell Distribution Width 14.2 % (11.0-16.0); White Blood Count 7.5 X10*3/uL (4.8-10.8)
[2022-06-14 11:51] LABS: Alanine Aminotransferase 28 U/L (0-40); Albumin Level 4.6 g/dL (3.5-5.0); Alkaline Phosphatase 95 U/L (39-117); Anion Gap 12 (12-20); Aspartate Amino Transferase 23 U/L (5-37); Bilirubin Total 0.9 mg/dL (0.0-1.0); Blood Urea Nitrogen 13 mg/dL (9-16); Calcium 9.7 mg/dL (8.4-10.2); Carbon Dioxide 28 mmol/L (22-29); Chloride 105 mmol/L (96-108); Cholesterol 170 mg/dL; Estimated Glomerular Filt Rate > 60; Glucose Fasting 94 mg/dL (60-99); HDL Cholesterol 40 mg/dL; LDL Cholesterol Calculated 111 mg/dl; Potassium 5.4 mmol/L (3.3-5.1); Sodium 140 mmol/L (135-145); Triglycerides 98 mg/dL
[2022-06-14 11:55] LABS: TSH reflex Free T4 2.21 uIU/mL (0.32-4.0)
== END 2022-06-14 06:31 | disposition home or self-care (01) ==
LOC: HO.LAB 06:30
PROVIDERS: PCP Nurse Practitioner Family; Visit Provider Nurse Practitioner Family
DX: Z00.00 Encounter for general adult medical examination without abnormal findings (principal)
CPT/HCPCS: 36415; 80053; 80061; 81003; 84443; 85025

== ENCOUNTER 2022-06-19 13:30 | Outpatient (REF) | payer OTHER, SELFPAY ==
[2022-06-19 17:00] LABS: Anion Gap 14 (12-20); Blood Urea Nitrogen 10 mg/dL (9-16); Calcium 9.7 mg/dL (8.4-10.2); Carbon Dioxide 27 mmol/L (22-29); Chloride 104 mmol/L (96-108); Estimated Glomerular Filt Rate > 60; Glucose Random 89 mg/dL (60-115); Sodium 141 mmol/L (135-145)
== END 2022-06-19 13:31 | disposition home or self-care (01) ==
LOC: HO.HMGCLDS 13:30
PROVIDERS: PCP Nurse Practitioner Family; Visit Provider Nurse Practitioner Family
DX: E87.5 Hyperkalemia (principal)
CPT/HCPCS: 36415; 80048

== ENCOUNTER → 2022-07-22 14:27 | Outpatient (BNVA) | payer OTHER, SELFPAY | PROVIDERS: PCP Nurse Practitioner Family; Visit Provider Nurse Practitioner Family | DX: Z12.11 Encounter for screening for malignant neoplasm of colon (principal) | CPT/HCPCS: 99202 ==

== ENCOUNTER 2023-04-16 11:00 | Outpatient (AMB) | payer OTHER, SELFPAY ==
[2023-04-16 11:01] VITALS: BP 122/80; PULSE 97; TEMP 36.6; O2SAT 97
--- NOTE | 2023-04-16 11:01 | MHC.OFFWIV ---
Intake Vital Signs 04/16/23 11:01 Height 6 ft 2 in BP 122/80 Blood Pressure Location Rt brachial Position Sitting Pulse 97 Pulse Source Pulse Oximeter Temp 97.9 F Temp Source Temporal Artery Scan Pulse Oximetry (%) 97 Intake Visit Reasons: Lt Shoulder Stiffness Intake Note: pt is here for c.o left shoulder stiffness Patient Tobacco Use Status: Never used Tobacco Allergies No Known Allergies [No Known Allergies*] Allergy (Verified 04/16/23 11:01) Medication List - Last Reconciled 04/16/23 by Rebekah Chris NP atorvastatin 20 mg PO DAILY cyclobenzaprine 5 mg PO BEDTIME PRN lidocaine 5% 1 patch topical DAILY naproxen 500 mg PO BID PRN Do you need a note to return to daycare/school/sports/work: Yes HPI HPI Comments History of Present Illness Details 47 y/o male patient who presents to the walk-in clinic with c/o left shoulder pain and stiffness. This a chronic problem, started 2020. Denies any injury or trauma to the joint, but reports repetitive motions. He works as maintenance for [employer]. Reports having PT in the past with good relief. Denies numbness or tingling to the fingers. [facility] Medical History Hypercholesteremia Physical exam Umbilical hernia Family History Father No problems noted. Mother Skin cancer Maternal Grandmother Colon cancer Social History Housing: Apartment Alcohol intake: current Alcohol intake frequency: a few times a month Patient Tobacco Use Status: Never used Tobacco e-Cigarette/Vaping Use: Never Used Second Hand Smoke Exposure: No Current occupational status: employed Current occupation: maintenance Cognitive needs: No Hearing needs: No Vision needs: No Review of Systems Const All systems reviewed & are unremarkable except as noted in HPI and below Physical Exam Vital Signs: Last Vital Signs Temp 97.9 F 04/16/23 11:01 Pulse 97 04/16/23 11:01 BP 122/80 04/16/23 11:01 Pulse Ox 97 04/16/23 11:01 Extrem Left upper extremity: normal capillary refill and shoulder/upper arm Details: inspection abnormal, tenderness Location: of the proximal humerus, axillary nerve sensory function normal, abnormal ROM Details: pain with active ROM and pain with passive ROM and warmth (normal skin color and temperature); no swelling; no cyanosis and no edema Assessment & Plan Assessment & Plan (1) Left shoulder pain: Code(s): M25.512 - Pain in left shoulder Qualifiers: Chronicity: chronic Qualified Code(s): M25.512 - Pain in left shoulder; G89.29 - Other chronic pain Plan: Advised to limit repetitive motions such as heavy lifting, snow shoveling. Advised to contact PCP for PT and Ortho referrals. Naproxen for pain Lidocaine Patch for pain Plan Advised to limit repetitive motions such as heavy lifting, snow shoveling. Advised to contact PCP for PT and Ortho referrals. Naproxen for pain Lidocaine patch for pain Medications: New naproxen 500 mg PO BID PRN 60 tabs 0RF pain cyclobenzaprine 5 mg PO BEDTIME PRN 10 tabs 0RF muscle spasm lidocaine 5% leave on most painful area for up to 12 hrs 1 patch topical DAILY 15 ea 0RF Coding Level of Care Code Est Pt Level 2 (56144) Diagnoses Chronic left shoulder pain M25.512; G89.29 Chronicity: chronic Time Spent (min) 10
== END 2023-04-16 12:11 | disposition home or self-care (01) ==
PROVIDERS: PCP Nurse Practitioner Family; Visit Provider Nurse Practitioner Family
DX: M25.512 Pain in left shoulder (principal); G89.29 Other chronic pain
CPT/HCPCS: 99214

== ENCOUNTER 2023-05-14 14:54 | Outpatient (AMB) | payer OTHER, SELFPAY ==
[2023-05-14 14:55] VITALS: BP 150/86; PULSE 93; TEMP 37.2; O2SAT 99; BMI 23.7
--- NOTE | 2023-05-14 14:55 | AM.OFFWIN_ITS ---
Intake Vital Signs 05/14/23 14:55 Height 6 ft 2 in Weight 185 lb BMI 23.7 BP 150/86 H Blood Pressure Location Lt brachial Position Sitting Pulse 93 Pulse Source Pulse Oximeter Temp 98.9 F Temp Source Temporal Artery Scan Pulse Oximetry (%) 99 Oxygen Delivery Method Room Air Intake Visit Reasons: EP RT hand pain Intake Note: pt is here today for rt hand pain started yesterday Patient Tobacco Use Status: Never used Tobacco Allergies No Known Allergies [No Known Allergies*] Allergy (Verified 05/14/23 14:56) Do you need a note to return to daycare/school/sports/work: No HPI HPI Comments History of Present Illness Details 47 y/o male patient who presents to walk in clinic with c/o right hand pain since yesterday. 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 He denies numbness or tingling of fingers. Denies any recent Injury or trauma to the hand, but admits to manual labor. [facility] Medical History Hypercholesteremia Physical exam Umbilical hernia Family History Father No problems noted. Mother Skin cancer Maternal Grandmother Colon cancer Social History Housing: Apartment Alcohol intake: current Alcohol intake frequency: a few times a month Patient Tobacco Use Status: Never used Tobacco e-Cigarette/Vaping Use: Never Used Second Hand Smoke Exposure: No Current occupational status: employed Current occupation: maintenance Cognitive needs: No Hearing needs: No Vision needs: No Review of Systems Const All systems reviewed & are unremarkable except as noted in HPI and below Physical Exam Vital Signs: Last Vital Signs Temp 98.9 F 05/14/23 14:55 Pulse 93 05/14/23 14:55 BP 150/86 H 05/14/23 14:55 Pulse Ox 99 05/14/23 14:55 Oxygen Delivery Method Room Air 05/14/23 14:55 BMI result Body Mass Index 23.7 Const General: no acute distress Orientation/consciousness: patient oriented x3 Skin General skin exam: no rashes or lesions noted Neuro General: patient oriented x3 Motor exam (neuro): 5/5 motor strength present throughout Extrem Right upper extremity: normal to inspection, full ROM, no joint enlargement and Extremity exam: right hand Details: normal capillary refill, neuromotor exam normal, neurosensory exam normal, normal ROM of fingers and swelling (Mild swelling ) Location: of the dorsal hand Location: distally Left upper extremity: normal to inspection, full ROM, normal capillary refill, no joint enlargement and hand Details: normal to inspection Assessment & Plan Assessment & Plan (1) Right hand pain: Code(s): M79.641 - Pain in right hand Plan: - Wrapped with Eliceo bandage. - Pt to wear his Wrist/hand brace - Acetaminophen for pain relief. - Ice/Heat Coding Level of Care Code Est Pt Level 2 (59739) Diagnoses Right hand pain M79.641 Time Spent (min) 10
== END 2023-05-14 15:28 | disposition home or self-care (01) ==
PROVIDERS: PCP Nurse Practitioner Family; Visit Provider Nurse Practitioner Family
DX: M79.641 Pain in right hand (principal)
CPT/HCPCS: 99213

== ENCOUNTER 2023-06-13 06:31 | Outpatient (REF) | payer OTHER, SELFPAY ==
[2023-06-13 11:08] LABS: Appearance Urine Clear; Color Urine Yellow; Glucose Urine UA Negative (Negative); Leukocyte Esterase Urine Negative (Negative); Nitrite Urine Negative (Negative); PH 7.5 (5.0-9.0); Urine Blood Negative (Negative); Urine Ketones Negative (Negative); Urine Protein Negative (Neg-Trace)
[2023-06-13 11:09] LABS: MANUAL DIFF FLAG NO
[2023-06-13 11:14] LABS: Basophils Absolute Auto 0.1 X10*3/uL (0.0-0.2); Eosinophils Absolute Auto 0.3 X10*3/uL (0.0-0.4); Eosinophils Percent Auto 4.8 % (0-4); Hematocrit 46.1 % (42.0-52.0); Hemoglobin 14.9 g/dl (14.0-18.0); Imm Gran Abs Auto 0.04 X10*3/uL (0.00-0.03); Imm Gran Pct Auto 0.6 % (0.0-0.4); Lymphocytes Percent Auto 29.1 % (20-40); Mean Corpuscular HGB Conc 32.3 g/dl (31.0-36.0); Mean Corpuscular Hemoglobin 29.7 pg (27.0-33.0); Mean Platelet Volume 10.9 fL (9.4-12.4); Monocytes Absolute Auto 0.8 X10*3/uL (0.1-1.2); Neutrophils Absolute Auto 3.8 x10*3/uL (2.0-8.3); Neutrophils Percent Auto 53.5 % (45-73); Platelet Count 343 X10*3/uL (160-400); Red Blood Count 5.01 X10*6/uL (4.60-5.80); Red Cell Distribution Width 14.5 % (11.0-16.0)
[2023-06-13 12:17] LABS: Alanine Aminotransferase 21 U/L (0-40); Albumin Level 4.5 g/dL (3.5-5.0); Alkaline Phosphatase 96 U/L (39-117); Anion Gap 11 (12-20); Aspartate Amino Transferase 18 U/L (5-37); Bilirubin Total 0.6 mg/dL (0.0-1.0); Blood Urea Nitrogen 10 mg/dL (9-16); Calcium 9.8 mg/dL (8.4-10.2); Carbon Dioxide 29 mmol/L (22-29); Chloride 107 mmol/L (96-108); Cholesterol 125 mg/dL (<200); Estimated Glomerular Filt Rate > 60; Glucose Fasting 79 mg/dL (60-99); HDL Cholesterol 40 mg/dL (>40); LDL Cholesterol Calculated 62 mg/dL (<100); Potassium 4.3 mmol/L (3.3-5.1); Sodium 143 mmol/L (135-145); Total Protein 7.1 g/dL (6.5-8.0); Triglycerides 115 mg/dL (<150)
== END 2023-06-13 06:32 | disposition home or self-care (01) ==
LOC: HO.HMGCLDS 06:31
PROVIDERS: PCP Nurse Practitioner Family; Visit Provider Nurse Practitioner Family
DX: Z00.00 Encounter for general adult medical examination without abnormal findings (principal)
CPT/HCPCS: 36415; 80053; 80061; 81003; 84443; 85025

== ENCOUNTER 2023-06-15 12:43 | Outpatient (AMB) | payer OTHER, SELFPAY ==
--- NOTE | 2023-06-15 13:09 | MHC.PC.OV ---
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 Labs were already performed. Refuses colonoscopy, will order cologuard. PFSH Medical History Umbilical hernia Physical exam Hypercholesteremia Family History Father No problems noted. Mother Skin cancer Maternal Grandmother Colon cancer Social History Housing: Apartment Alcohol intake: current Alcohol intake frequency: a few times a month Patient Tobacco Use Status: Never used Tobacco e-Cigarette/Vaping Use: Never Used Second Hand Smoke Exposure: No Current occupational status: employed Current occupation: maintenance Cognitive needs: No Hearing needs: No Vision needs: No Questionnaire Thrive Questionnaire Date Thrive assessed: 06/09/22 RYAN-7 AMB Questionnaire RYAN-7 Date RYAN - 7 assessed: 06/09/22 Source: Developed by Drs. Willian Amin, Sayra Mccabe, Osmar Archer and colleagues, with an educational osito from [employer]. Review of Systems Const Denies chills and Denies fever(s) Eyes Denies blurry vision ENT Denies vertigo, Denies dizziness and Denies sore throat Card Denies chest pain at rest, Denies chest pain with activity, Denies diaphoresis, Denies dyspnea and Denies dyspnea on exertion Resp Denies cough, Denies dyspnea, Denies dyspnea on exertion and Denies wheezing GI Denies abdominal pain, Denies melena, Denies hematochezia, Denies constipation, Denies diarrhea and Denies loose stools Denies hematuria Musc Denies numbness and Denies tingling Skin/Breast Denies lesions Neuro Denies vertigo, Denies dizziness, Denies numbness and Denies tingling Psych Denies anxiety, Denies depression, Denies homicidal ideation, Denies suicidal ideation and Denies other (substance abuse) Aller/Immun Denies wheezing Physical exam (Primary Care) Vital Signs: Last Vital Signs Pulse 78 06/15/23 13:10 BP 130/80 06/15/23 13:10 Pulse Ox 98 06/15/23 13:10 Oxygen Delivery Method Room Air 06/15/23 13:10 BMI result Body Mass Index 23.5 Tobacco/Smoking Status: Tobacco use Status Tobacco use date assessed 06/15/23 06/15/23 13:13 Patient Tobacco Use Status Never used Tobacco 06/15/23 13:13 e-Cigarette/Vaping Use Never Used 06/15/23 13:13 Thrive Assessment: Date of Thrive Assessment Date Thrive assessed 06/09/22 06/15/23 13:13 Const General: cooperative Nutritional Appearance: well nourished Orientation/consciousness: patient oriented x3 HENMT Head: Yes normal to inspection, Yes normocephalic and Yes atraumatic Ears: TM's normal bilaterally Eyes General: appearance normal, both eyes and all related structures Alignment and Position: alignment normal and position normal Neck Neck: Yes normal visual inspection and Yes no lymphadenopathy Thyroid: Thyroid normal Resp Effort & Inspection: normal respiratory effort Auscultation: clear to auscultation bilaterally Cardio Rate: regular rate Rhythm: regular rhythm Heart sounds: S1 normal heart sound present, S2 normal heart sound present and no murmurs GI Palpation (GI): Soft to palpation, nontender and Hernia present umbilical Auscultation: normal bowel sounds Male General Exam: Yes normal external exam Penis: normal penis Scrotum: scrotum normal, testes descended bilaterally and no inguinal hernias Testes: no testicular mass Skin Rashes: no rashes Neuro General: patient oriented x3, moves all extremities, no focal motor deficits and deep tendon reflexes 2+ bilaterally Romberg Test: Negative Psych Appearance: grossly normal Mental Status: mental status grossly normal Speech and movement: Normal speech and movement present Affect: normal affect Attitude: cooperative Thought process: Normal thought process present Thought content: Normal thought content present Insight: Good insight present (Psych) Judgement: Good judgement present (Psych) Assessment and Plan Assessment & Plan (1) Physical exam: Code(s): Z00.00 - Encounter for general adult medical examination without abnormal findings Plan The patient agreed to the use of a clinical medical assistant for this encounter. Scribed for VANNESA Lopez by Ayanna Martinez clinical medical assistant, on 06/15/2023 at 13:25 EST. Orders: Orders Complete Blood Count Auto Diff 11 Months Z00.00 - Encounter for general adult medical examination without abnormal findings UA CC w/rflx Micro + Cult 11 Months Z00.00 - Encounter for general adult medical examination without abnormal findings Lipid Panel 11 Months Z00.00 - Encounter for general adult medical examination without abnormal findings Comprehensive [place]. Panel Fast 11 Months Z00.00 - Encounter for general adult medical examination without abnormal findings TSH reflex Free T4 11 Months Z00.00 - Encounter for general adult medical examination without abnormal findings Referrals Cologuard Test Z12.11 - Encounter for screening for malignant neoplasm of colon, Z12.12 - Encounter for screening for malignant neoplasm of rectum Coding Level of Care Code Est Pt Prev Care 40-64y(57342) Diagnoses Physical exam Z00.00
[2023-06-15 13:10] VITALS: BP 130/80; PULSE 78; O2SAT 98; BMI 23.5
== END 2023-06-15 13:38 | disposition home or self-care (01) ==
PROVIDERS: PCP Nurse Practitioner Family; Visit Provider Nurse Practitioner Family
DX: Z00.00 Encounter for general adult medical examination without abnormal findings (principal)
CPT/HCPCS: 99396

== ENCOUNTER 2023-07-25 09:04 | Outpatient (AMB) | payer OTHER, SELFPAY ==
[2023-07-25 09:06] VITALS: BP 130/78; PULSE 77; O2SAT 99; BMI 22.7
--- NOTE | 2023-07-25 09:06 | AM.OFFWIN_ITS ---
Intake Vital Signs 07/25/23 09:06 Height 6 ft 2 in Weight 177 lb BMI 22.7 BP 130/78 Blood Pressure Location Lt brachial Position Sitting Pulse 77 Pulse Source Pulse Oximeter Pulse Oximetry (%) 99 Oxygen Delivery Method Room Air Intake Visit Reasons: EP RT ankle injury Intake Note: Patient is here with right ankle pain, no known injury, he states it's been since . Patient Tobacco Use Status: Never used Tobacco Allergies No Known Allergies [No Known Allergies*] Allergy (Verified 07/25/23 09:08) Medication List - Last Reconciled 07/25/23 by Dashawn Malhotra MD No Known Home Meds Do you need a note to return to daycare/school/sports/work: No HPI EP RT ankle injury HPI Details c/o R ankle pain since yesterdy. No known injury. General pain of ankle & foot with some swelling/edema. No F/C. No numbness or warmth/cold. No wounds/abrasions. [facility] Medical History Umbilical hernia Physical exam Hypercholesteremia Family History Father No problems noted. Mother Skin cancer Maternal Grandmother Colon cancer Social History Housing: Apartment Alcohol intake: current Alcohol intake frequency: a few times a month Patient Tobacco Use Status: Never used Tobacco e-Cigarette/Vaping Use: Never Used Second Hand Smoke Exposure: No Current occupational status: employed Current occupation: maintenance Cognitive needs: No Hearing needs: No Vision needs: No Review of Systems Const Denies chills, Denies fatigue, Denies fever(s), Denies headache(s) and Denies weakness ENT Denies dizziness and Denies headache(s) Card Denies chest pain, Denies lightheadedness, Denies dyspnea and Denies other (Palpitations) Resp Denies cough, Denies dyspnea, Denies wheezing and Denies other ( shortness of breath) Musc Denies numbness and Denies tingling Neuro Denies dizziness, Denies headache(s), Denies numbness, Denies tingling, Denies paresthesias and Denies weakness Psych Denies anxiety and Denies depression Endo Denies fatigue Aller/Immun Denies wheezing Physical Exam Vital Signs: Last Vital Signs Pulse 77 07/25/23 09:06 BP 130/78 07/25/23 09:06 Pulse Ox 99 07/25/23 09:06 Oxygen Delivery Method Room Air 07/25/23 09:06 BMI result Body Mass Index 22.7 Const General: no acute distress and well developed Nutritional Appearance: well nourished Orientation/consciousness: patient oriented x3 HEENT Head: Yes normocephalic and Yes atraumatic Eyes General: appearance normal, both eyes and all related structures Pupils: Equal, round and reactive pupils present EOM: EOMs intact bilaterally Resp Effort & Inspection: normal respiratory effort Auscultation: clear to auscultation bilaterally Cardio Rate: regular rate Rhythm: regular rhythm Heart sounds: S1 normal heart sound present, S2 normal heart sound present, no gallops, no murmurs and no rubs Neuro General: patient oriented x3 and gait normal Cranial nerves: Yes Equal, round and reactive pupils present Extrem Other: R ankle & foot w/ edema but no excessive warmth, cold. Minimal tenderness and walking fine. @+ DP pulse & good senstion at distal toe tips Psych Affect: normal affect Assessment & Plan Assessment & Plan (1) Right ankle sprain: Code(s): S93.401A - Sprain of unspecified ligament of right ankle, initial encounter Plan: Mild sprain/strain. Will give him a script for meloxicam Elevate leg No work today Use Eliceo bandage when working. And use ice afterwards Call or return to office if not improving or worsens at any time Medications: New meloxicam 15 mg PO DAILY 10 days 10 tabs 1RF Coding Level of Care Code Est Pt Level 3 (74142) Diagnoses Right ankle sprain S93.401A
== END 2023-07-25 10:51 | disposition home or self-care (01) ==
PROVIDERS: PCP Nurse Practitioner Family; Visit Provider Family Medicine
DX: S93.401A Sprain of unspecified ligament of right ankle, initial encounter (principal)
CPT/HCPCS: 99051; 99213

== ENCOUNTER 2023-09-30 08:05 | Outpatient (AMB) | payer OTHER, SELFPAY ==
[2023-09-30 08:09] VITALS: BP 110/62; PULSE 95; O2SAT 96; BMI 22.7
--- NOTE | 2023-09-30 08:09 | AM.OFFWIN_ITS ---
Intake Vital Signs 09/30/23 08:09 Height 6 ft 2 in Weight 177 lb BMI 22.7 BP 110/62 Blood Pressure Location Lt brachial Position Sitting Pulse 95 Pulse Source Pulse Oximeter Pulse Oximetry (%) 96 Oxygen Delivery Method Room Air Intake Visit Reasons: EP rt elbow pain Intake Note: pt is here for right elbow pain Patient Tobacco Use Status: Never used Tobacco Allergies No Known Allergies [No Known Allergies*] Allergy (Verified 09/30/23 08:10) Do you need a note to return to daycare/school/sports/work: Yes HPI EP rt elbow pain HPI Details This is a 48-year-old male patient who presents today with a 2 day history of right elbow pain. He denies any injury or trauma to area. 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 He has good range of motion in that right elbow, however states he feels a little soreness and pinching sensation. Denies any radiation of pain. Denies any arm or hand weakness. [facility] Medical History Umbilical hernia Physical exam Hypercholesteremia Family History Father No problems noted. Mother Skin cancer Maternal Grandmother Colon cancer Social History Housing: Apartment Alcohol intake: current Alcohol intake frequency: a few times a month Patient Tobacco Use Status: Never used Tobacco e-Cigarette/Vaping Use: Never Used Second Hand Smoke Exposure: No Current occupational status: employed Current occupation: maintenance Cognitive needs: No Hearing needs: No Vision needs: No Review of Systems Const All systems reviewed & are unremarkable except as noted in HPI and below Physical Exam Vital Signs: Last Vital Signs Pulse 95 09/30/23 08:09 BP 110/62 09/30/23 08:09 Pulse Ox 96 09/30/23 08:09 Oxygen Delivery Method Room Air 09/30/23 08:09 BMI result Body Mass Index 22.7 Const General: cooperative, healthy appearing, comfortable and no acute distress Resp Effort & Inspection: normal respiratory effort Skin General skin exam: no rashes or lesions noted Neuro Motor exam (neuro): 5/5 motor strength present throughout Extrem Right upper extremity: normal to inspection, normal capillary refill, no joint enlargement and elbow/forearm Details: normal to inspection, tenderness (very mild tenderness over lat epicondyle) and normal ROM Psych Appearance: grossly normal Mental Status: mental status grossly normal Speech and movement: Normal speech and movement present Assessment & Plan Assessment & Plan (1) Lateral epicondylitis, right elbow: Code(s): M77.11 - Lateral epicondylitis, right elbow Plan: Symptoms consistent with a right lateral tendinopathy. Advised NSAIDs, ice, compression to area. I applied a Eliceo wrap today in the office, and patient states he is going to purchase elbow compression sleeve at [employer]. Work note for light duty for the next couple of days provided. Advised patient to return to the clinic if symptoms worsen or new symptoms develop. He verbalizes understanding and agrees to plan. Medications: New ibuprofen 600 mg PO Q8H PRN 90 tabs 0RF pain M77.11 - Lateral epicondylitis, right elbow Coding Level of Care Code Est Pt Level 4 (56400) Diagnoses Lateral epicondylitis, right elbow M77.11
== END 2023-09-30 08:50 | disposition home or self-care (01) ==
PROVIDERS: PCP Nurse Practitioner Family; Visit Provider Nurse Practitioner Family
DX: M77.11 Lateral epicondylitis, right elbow (principal)
CPT/HCPCS: 99214

== ENCOUNTER 2023-10-15 12:03 | Outpatient (AMB) | payer OTHER, SELFPAY ==
--- NOTE | 2023-10-15 12:05 | MHC.OFFWIV ---
Intake Vital Signs 10/15/23 12:06 Height 6 ft 2 in Weight 177 lb 6 oz BMI 22.8 BP 128/72 Blood Pressure Location Rt brachial Position Sitting Pulse 96 Pulse Source Pulse Oximeter Temp 97.9 F Temp Source Temporal Artery Scan Pulse Oximetry (%) 97 Intake Visit Reasons: Right Wrist pain Intake Note: pt is here for right wrist pain Patient Tobacco Use Status: Never used Tobacco Allergies No Known Allergies [No Known Allergies*] Allergy (Verified 10/15/23 12:06) Do you need a note to return to daycare/school/sports/work: No HPI HPI Comments History of Present Illness Details 48 y/o male patient who presents to walk in clinic with c/o left wrist pain for few days now. He has been using Ibuprofen 800 mg with good relief. He works in [employer]. [facility] Medical History Umbilical hernia Physical exam Hypercholesteremia Family History Father No problems noted. Mother Skin cancer Maternal Grandmother Colon cancer Social History Housing: Apartment Alcohol intake: current Alcohol intake frequency: a few times a month Patient Tobacco Use Status: Never used Tobacco e-Cigarette/Vaping Use: Never Used Second Hand Smoke Exposure: No Current occupational status: employed Current occupation: maintenance Cognitive needs: No Hearing needs: No Vision needs: No Review of Systems Const All systems reviewed & are unremarkable except as noted in HPI and below Physical Exam Vital Signs: Last Vital Signs Temp 97.9 F 10/15/23 12:06 Pulse 96 10/15/23 12:06 BP 128/72 10/15/23 12:06 Pulse Ox 97 10/15/23 12:06 BMI result Body Mass Index 22.8 Const General: comfortable and no acute distress Nutritional Appearance: thin Orientation/consciousness: patient oriented x3 Skin General skin exam: no rashes or lesions noted Neuro General: patient oriented x3 Extrem Right upper extremity: normal to inspection and full ROM Left upper extremity: wrist (Tenderness volar aspect of left wrist) and hand Details: normal to inspection, normal capillary refill, neuromotor exam normal, neurosensory exam normal and no swelling; no abrasions and no crepitus Psych Speech and movement: Normal speech and movement present Assessment & Plan Assessment & Plan (1) Strain of left wrist: Code(s): S66.912A - Strain of unspecified muscle, fascia and tendon at wrist and hand level, left hand, initial encounter Qualifiers: Encounter type: initial encounter Qualified Code(s): S66.912A - Strain of unspecified muscle, fascia and tendon at wrist and hand level, left hand, initial encounter Plan: Wrist/hand brace Keep the skin dry and clean Reports any severe pain or signs of infection. Medications: New acetaminophen 1,000 mg (2 x 500 mg) PO Q6H PRN 30 caps 0RF pain S66.912A - Strain of unspecified muscle, fascia and tendon at wrist and hand level, left hand, initial encounter ibuprofen 800 mg PO Q8H 60 tabs 0RF S66.912A - Strain of unspecified muscle, fascia and tendon at wrist and hand level, left hand, initial encounter Discontinued ibuprofen Discontinued Reason: Patient Completed Course 600 mg PO Q8H PRN 90 tabs 0RF pain M77.11 - Lateral epicondylitis, right elbow Coding Level of Care Code Est Pt Level 3 (48085) Diagnoses Strain of left wrist, initial encounter S66.912A Encounter type: initial encounter Time Spent (min) 15
[2023-10-15 12:06] VITALS: BP 128/72; PULSE 96; TEMP 36.6; O2SAT 97; BMI 22.8
== END 2023-10-15 12:45 | disposition home or self-care (01) ==
PROVIDERS: PCP Nurse Practitioner Family; Visit Provider Nurse Practitioner Family
DX: S66.912A Strain of unspecified muscle, fascia and tendon at wrist and hand level, left hand, initial encounter (principal)
CPT/HCPCS: 99213

== ENCOUNTER 2024-03-05 09:03 | Outpatient (AMB) | payer OTHER, SELFPAY ==
[2024-03-05 09:11] VITALS: BP 112/60; PULSE 80; TEMP 36.8; O2SAT 98; BMI 23.4
--- NOTE | 2024-03-05 09:11 | AM.OFFWIN_ITS ---
Intake Vital Signs 03/05/24 09:11 Height 6 ft 2 in Weight 182 lb BMI 23.4 BP 112/60 Blood Pressure Location Lt brachial Position Sitting Pulse 80 Pulse Source Pulse Oximeter Temp 98.3 F Temp Source Oral Pulse Oximetry (%) 98 Oxygen Delivery Method Room Air Intake Visit Reasons: EP sore on bottom of foot Intake Note: Pt is here today c/o bottom of Rt foot pain Patient Tobacco Use Status: Never used Tobacco Allergies No Known Allergies [No Known Allergies*] Allergy (Verified 03/23/24 10:45) HPI EP sore on bottom of foot HPI Details Patient is a 48-year-old male no history of diabetes and normal fasting glucose earlier this year, who comes to the walk-in clinic complaining of a sore on the bottom of his foot. He reports that the skin gets thick at the base of his right 1st metatarsal. 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 He denies pain to the area, weakness or tingling to the foot, fever or chills weakness or myalgias, or other associated systemic symptoms of infection or inflammation. [facility] Medical History Umbilical hernia Physical exam Hypercholesteremia Family History Father No problems noted. Mother Skin cancer Maternal Grandmother Colon cancer Social History Housing: Apartment Alcohol intake: current Alcohol intake frequency: a few times a month Patient Tobacco Use Status: Never used Tobacco e-Cigarette/Vaping Use: Never Used Second Hand Smoke Exposure: No Current occupational status: employed Current occupation: maintenance Cognitive needs: No Hearing needs: No Vision needs: No Review of Systems Const All systems reviewed & are unremarkable except as noted in HPI and below Physical Exam Vital Signs: Last Vital Signs Temp 98.3 F 03/05/24 09:11 Pulse 80 03/05/24 09:11 BP 112/60 03/05/24 09:11 Pulse Ox 98 03/05/24 09:11 Oxygen Delivery Method Room Air 03/05/24 09:11 BMI result Body Mass Index 23.4 Extrem Other: Obvious right hallux valgus deformity, with a callus directly over the lateral aspect of the bunion. No cellulitic features. Neurovascularly intact distally Assessment & Plan Assessment & Plan (1) Callus under metatarsal head: Code(s): L84 - Corns and callosities Plan: Patient is a 48-year-old male with no immunosuppressive or infection issues or symptoms, who comes to the walk-in clinic complaining of a persistent callus under his 1st right metatarsal had. He has an obvious right hallux valgus deformity, which is likely due to his high arch on that foot. The callus is directly over the lateral aspect of the bunion, so I think he is getting friction in his work boots, which is causing hyperkeratosis as he does not have appropriate inserts for his foot to support his high arch. We discussed that he should trial an [id number] product like Dr. Newman inserts, and I also will write him for 20% urea topical cream to use on the area to decrease the thickness of the callus. He does not have any pain to the area, so I do not think pipeline integrity engineer consultation is needed at this time. However he has a follow- up with his PCP in about 4 months, and if symptoms are persisting, he might benefit from custom insoles and pipeline integrity engineer at that time. We discussed that he should monitor the area and follow up sooner if it appears he is developing an infection or any other acute issues, however he has no cellulitic features today and no pain at all to the joint. Medications: New urea 20% 1 appl topical BID 85 grams 0RF 2 weeks Coding Level of Care Code Est Pt Level 4 (46342) Diagnoses Callus under metatarsal head L84
== END 2024-03-05 10:31 | disposition home or self-care (01) ==
PROVIDERS: PCP Nurse Practitioner Family; Visit Provider Physician Assistant Medical
DX: L84 Corns and callosities (principal)

== ENCOUNTER → 2024-03-05 09:03 | Outpatient (BNVA) | payer OTHER, SELFPAY | PROVIDERS: PCP Nurse Practitioner Family; Visit Provider Physician Assistant Medical | DX: L84 Corns and callosities (principal) | CPT/HCPCS: 99212 ==

== ENCOUNTER 2024-03-19 09:07 | Outpatient (AMB) | payer OTHER, SELFPAY ==
[2024-03-19 09:18] VITALS: BP 118/70; PULSE 80; TEMP 36.6; O2SAT 98; BMI 23.4
--- NOTE | 2024-03-19 09:18 | MHC.OFFWIV ---
Intake Vital Signs 03/19/24 09:18 Height 6 ft 2 in Weight 182 lb BMI 23.4 BP 118/70 Blood Pressure Location Rt brachial Position Sitting Pulse 80 Pulse Source Pulse Oximeter Temp 97.9 F Temp Source Oral Pulse Oximetry (%) 98 Intake Visit Reasons: EP RT foot Swelling/pain Intake Note: pt is here for foot swelling anf pain due to callus Patient Tobacco Use Status: Never used Tobacco Allergies No Known Allergies [No Known Allergies*] Allergy (Verified 03/19/24 09:19) Do you need a note to return to daycare/school/sports/work: No HPI HPI Comments History of Present Illness Details He presents to office with pain in R foot Was seen 2 weeks ago and given urea and has helped a little for his callus formation He said he works at [employer] and is on his feet all day He tried shoe inserts with little relief Worse at end of day No pain scale given Red spot after standing a while but resolves He has also tried icy hot which helps No fever or chills PFSH Medical History Umbilical hernia Physical exam Hypercholesteremia Family History Father No problems noted. Mother Skin cancer Maternal Grandmother Colon cancer Social History Housing: Apartment Alcohol intake: current Alcohol intake frequency: a few times a month Patient Tobacco Use Status: Never used Tobacco e-Cigarette/Vaping Use: Never Used Second Hand Smoke Exposure: No Current occupational status: employed Current occupation: maintenance Cognitive needs: No Hearing needs: No Vision needs: No Review of Systems Const Denies chills and Denies fever(s) Musc Reports abnormal gait (pain to R callus near great toe after walking/standing for a while), Reports joint swelling, Denies loss of height, Denies numbness and Denies tingling Skin/Breast Reports sores (R 1st MTP joint callus formation plantar aspect) Neuro Reports abnormal gait (pain to R callus near great toe after walking/standing for a while), Denies numbness and Denies tingling Physical Exam Vital Signs: Last Vital Signs Temp 97.9 F 03/19/24 09:18 Pulse 80 03/19/24 09:18 BP 118/70 03/19/24 09:18 Pulse Ox 98 03/19/24 09:18 BMI result Body Mass Index 23.4 General: Non-toxic, NAD. Speaking full sentences. Skin: Warm dry throughout R foot: plantar aspect 1st MTP pt has circular approx 0.5cm x 1cm slightly raised, slightly tender pale/skin colored region of dry thickened skin. No erythema, fluctuance or FB noted. No eschar or streaking erythema noted Cardiac: R DP pulse intact. Cap refill < 2 seconds MSK: + tenderness to palpation R foot plantar aspect 1st MTP but full ROM all digits R foot. Neurology: A/O. No aphasia or facial droop. Gait without abnormality Psych: Good mood and affect Assessment & Plan Assessment & Plan (1) Callus: Code(s): L84 - Corns and callosities Plan: No additional/different medications at this time Podiatry referral given Pt will see if they take his insurance, and if not, he may call back for referral to a different line assembly utility worker. Orders: Referrals Podiatry Referral L84 - Corns and callosities Coding Level of Care Code Est Pt Level 3 (44936) Diagnoses Callus L84
== END 2024-03-19 09:30 | disposition home or self-care (01) ==
PROVIDERS: PCP Nurse Practitioner Family; Visit Provider Physician Assistant
DX: L84 Corns and callosities (principal)

== ENCOUNTER → 2024-03-19 09:07 | Outpatient (BNVA) | payer OTHER, SELFPAY | PROVIDERS: PCP Nurse Practitioner Family; Visit Provider Physician Assistant | DX: L84 Corns and callosities (principal) | CPT/HCPCS: 99212 ==

== ENCOUNTER 2024-03-22 15:52 | Outpatient (AMB) | payer OTHER, SELFPAY ==
--- NOTE | 2024-03-22 16:12 | MHC.OFFWIV ---
Intake Vital Signs 03/22/24 16:17 Weight 182 lb BP 130/90 H Blood Pressure Location Lt brachial Position Sitting Pulse 84 Pulse Source Pulse Oximeter Pulse Oximetry (%) 96 Oxygen Delivery Method Room Air Intake Visit Reasons: EP callus on RT foot Patient Tobacco Use Status: Never used Tobacco Allergies No Known Allergies [No Known Allergies*] Allergy (Verified 03/23/24 10:45) Medication List - Last Reconciled 03/23/24 by Cesar Bryant MD atorvastatin 20 mg PO DAILY urea 20% 1 appl topical BID 2 weeks Do you need a note to return to daycare/school/sports/work: No HPI EP callus on RT foot HPI Details 48 yr old male presents to the office for a sick visit. He has noted irritation under the Right foot. Its just below the great toe on the sole. He stands for long duration as part of his work. Apart from redness, the area is not very sore. Able to stand, walk with no restrictions. ON LICENSE OF [facility] Medical History Umbilical hernia Physical exam Hypercholesteremia Family History Father No problems noted. Mother Skin cancer Maternal Grandmother Colon cancer Social History Housing: Apartment Alcohol intake: current Alcohol intake frequency: a few times a month Patient Tobacco Use Status: Never used Tobacco e-Cigarette/Vaping Use: Never Used Second Hand Smoke Exposure: No Current occupational status: employed Current occupation: maintenance Cognitive needs: No Hearing needs: No Vision needs: No Physical Exam Vital Signs: Last Vital Signs Pulse 84 03/22/24 16:17 BP 130/90 H 03/22/24 16:17 Pulse Ox 96 03/22/24 16:17 Oxygen Delivery Method Room Air 03/22/24 16:17 Extrem Other: Right foot: Plantar surface: 3 cm erythematous area under the head of the MTP joint. No tenderness. FROM at the great toe. Assessment & Plan Assessment & Plan (1) Callus of foot: Code(s): L84 - Corns and callosities Plan: Reassurance, no intervention needed. Coding Level of Care Code Est Pt Level 3 (57604) Diagnoses Callus of foot L84
[2024-03-22 16:17] VITALS: BP 130/90; PULSE 84; O2SAT 96
== END 2024-03-22 16:48 | disposition home or self-care (01) ==
PROVIDERS: PCP Nurse Practitioner Family; Visit Provider Internal Medicine
DX: L84 Corns and callosities (principal)

== ENCOUNTER → 2024-03-22 15:52 | Outpatient (BNVA) | payer OTHER, SELFPAY | PROVIDERS: PCP Nurse Practitioner Family; Visit Provider Internal Medicine | DX: L84 Corns and callosities (principal) | CPT/HCPCS: 99212 ==

== ENCOUNTER 2024-06-18 09:14 | Outpatient (AMB) | payer OTHER, SELFPAY ==
[2024-06-18 09:58] VITALS: BP 130/90; PULSE 90; TEMP 36.7; O2SAT 97; BMI 23.4
--- NOTE | 2024-06-18 09:58 | MHC.OFFWIV ---
Intake Vital Signs 06/18/24 09:58 Height 6 ft 2 in Weight 182 lb BMI 23.4 BP 130/90 H Blood Pressure Location Lt brachial Position Sitting Pulse 90 Pulse Source Pulse Oximeter Temp 98.0 F Temp Source Oral Pulse Oximetry (%) 97 Intake Visit Reasons: EP-lt leg pain Intake Note: pt is here for left leg pain, denies injury Patient Tobacco Use Status: Never used Tobacco Accompanied by: Self / Same As Patient Allergies No Known Allergies [No Known Allergies*] Allergy (Verified 06/18/24 09:58) Do you need a note to return to daycare/school/sports/work: Yes HPI EP-lt leg pain HPI Details Patient is a 48-year-old male with history of trochanteric bursitis to both of his hips, who is here for acute left leg pain, with no apparent underlying injury reported. It started at work a few days ago, and he has had persistent severe left hip pain, especially with bearing weight and ambulating. He has started to use a cane to help with walking. He has a history of trochanteric bursitis to both hips, which resolved with steroid injections in the past. He reports it has been longer than 3 years however, and would need a new orthopedic referral. He denies fall or other acute traumatic injury, but does report that he is on his feet most of the day with his job working at [employer]. He denies congenital hip disease, or other congenital or acquired issue that would contribute to this. He denies excessive alcohol use. [facility] Medical History Umbilical hernia Physical exam Hypercholesteremia Family History Father No problems noted. Mother Skin cancer Maternal Grandmother Colon cancer Social History Housing: Apartment Alcohol intake: current Alcohol intake frequency: a few times a month Patient Tobacco Use Status: Never used Tobacco e-Cigarette/Vaping Use: Never Used Second Hand Smoke Exposure: No Current occupational status: employed Current occupation: maintenance Cognitive needs: No Hearing needs: No Vision needs: No Physical Exam Vital Signs: Last Vital Signs Temp 98.0 F 06/18/24 09:58 Pulse 90 06/18/24 09:58 BP 130/90 H 06/18/24 09:58 Pulse Ox 97 06/18/24 09:58 BMI result Body Mass Index 23.4 Extrem Other: Patient has an antalgic gait, favoring the left leg, but is able to bear weight. He does shuffle the left leg forward with ambulating however. He has decreased range with external rotation, due to pain stopping him. Positive Marcos test for hip involvement. Decreased strength on the left side at 2/5 due to pain. Patellar reflex intact to +, and he is neurovascularly intact distally. There is no edema, cyanosis, skin changes otherwise. No palpable deformity to the left femur. No tenderness to the lower back or pelvis area otherwise. Assessment & Plan Assessment & Plan (1) Hip pain: Code(s): M25.559 - Pain in unspecified hip Qualifiers: Laterality: left Qualified Code(s): M25.552 - Pain in left hip Plan: Patient is a 48-year-old male with unknown underlying cognitive/developmental issue as he does deny that today. He also denies heavy alcohol use, falls or other acute trauma. He reports that he works at [employer] and started to have pain to the left hip radiating down to the left thigh a few days ago. It is similar to what he has had in the past, for which she was diagnosed with trochanteric bursitis. He had an injection by ortho which resolved his symptoms and he has been pain-free since then. I do think that this is likely a recurrent flare-up, as plain film x-ray does not show severe arthritis at this point. He does have some spurring that is visible however, and bilateral femur heads appear narrow to me, pending radiologist read. We discussed continuing to ice/heat, doing gentle stretching, and overall avoid aggravating the hip. He can continue to use the cane as needed, however I did give him a work note to excuse him for a few days so he can rest the extremity. I wrote him for diclofenac to reduce swelling, but if this does not relieve his symptoms enough, I did put through a referral also to ortho as he might be a candidate for repeat steroid injection if symptoms are persisting. He has a follow up appointment with PCP in 1 month and can further evaluate this at that point also if it is still an issue. I reminded him of the appointment, and he agrees to the follow-up. Orders: Orders XR hip LT w PEL1V Today M25.559 - Pain in unspecified hip Medications: New diclofenac potassium Take with food, decrease use when pain is controlled. 50 mg PO BID 30 tabs 0RF Coding Level of Care Code Est Pt Level 4 (30676) Diagnoses Pain of left hip M25.552 Laterality: left
== END 2024-06-18 11:53 | disposition home or self-care (01) ==
PROVIDERS: PCP Nurse Practitioner Family; Visit Provider Physician Assistant Medical
DX: M25.552 Pain in left hip (principal)

== ENCOUNTER 2024-06-18 09:14 | Outpatient (REF) | payer OTHER, SELFPAY ==
--- NOTE | ~2024-06-18 | XR_ITS ---
CLINICAL HISTORY: M25.559 - Pain in unspecified hip 3 view pelvis and left hip Comparison: DX - XR PELVIS 1-2V - 08/10/20 09:00 EDT DX - XR HIP RT MIN 2V - 08/10/20 09:00 EDT CR - XR HIP LT MIN 2V - 01/22/20 08:11 EDT Findings: No acute fracture or dislocation. There are moderate osteoarthritic changes with osteophytes arising from the head/neck. Joint space appears preserved. The soft tissues are unremarkable. IMPRESSION: There are moderate osteoarthritic changes with osteophytes arising from the head/neck. Joint space appears preserved. This document has been electronically signed by: Clive Cabrera MD on 06/18/2024 11:36:45
== END 2024-06-18 09:15 | disposition home or self-care (01) ==
LOC: HO.HMGCX 09:14
PROVIDERS: PCP Nurse Practitioner Family; Visit Provider Physician Assistant Medical
DX: M25.552 Pain in left hip (principal)
CPT/HCPCS: 73502; 99212

== ENCOUNTER → 2024-06-18 10:54 | Outpatient (BNV) | payer OTHER, SELFPAY | PROVIDERS: PCP Nurse Practitioner Family; Visit Provider Radiology Diagnostic Radiology | DX: M17.12 Unilateral primary osteoarthritis, left knee (principal) | CPT/HCPCS: 73502 ==

== ENCOUNTER 2024-07-02 06:31 | Outpatient (REF) | payer OTHER, SELFPAY ==
[2024-07-02 11:44] LABS: MANUAL DIFF FLAG NO
[2024-07-02 11:53] LABS: Appearance Urine Cloudy; Basophils Absolute Auto 0.1 X10*3/uL (0.0-0.2); Color Urine Dark Yellow; Eosinophils Absolute Auto 0.3 X10*3/uL (0.0-0.4); Eosinophils Percent Auto 3.2 % (0-4); Glucose Urine UA Negative (Negative); Hematocrit 46.1 % (42.0-52.0); Hemoglobin 15.1 g/dl (14.0-18.0); Imm Gran Abs Auto 0.05 X10*3/uL (0.00-0.03); Imm Gran Pct Auto 0.6 % (0.0-0.4); Leukocyte Esterase Urine Negative (Negative); Lymphocytes Absolute Auto 1.8 X10*3/uL (1.2-4.9); Lymphocytes Percent Auto 22.9 % (20-40); Mean Corpuscular HGB Conc 32.8 g/dl (31.0-36.0); Mean Corpuscular Hemoglobin 30.6 pg (27.0-33.0); Mean Corpuscular Volume 93.5 fL (80.0-98.0); Monocytes Absolute Auto 0.7 X10*3/uL (0.1-1.2); Monocytes Percent Auto 8.3 % (2-11); Neutrophils Absolute Auto 5.1 x10*3/uL (2.0-8.3); Nitrite Urine Negative (Negative); PH >= 9.0 (5.0-9.0); Platelet Count 349 X10*3/uL (160-400); Red Blood Count 4.93 X10*6/uL (4.60-5.80); Red Cell Distribution Width 13.7 % (11.0-16.0); Urine Blood Negative (Negative); Urine Ketones Trace mg/dL (Negative); Urine Protein Trace mg/dL (Neg-Trace); White Blood Count 7.9 X10*3/uL (4.8-10.8)
[2024-07-02 12:09] LABS: Alanine Aminotransferase 23 U/L (0-40); Albumin Level 4.5 g/dL (3.5-5.0); Alkaline Phosphatase 78 U/L (39-117); Anion Gap 8 (12-20); Aspartate Amino Transferase 22 U/L (5-37); Bilirubin Total 0.9 mg/dL (0.0-1.0); Blood Urea Nitrogen 9 mg/dL (9-16); Calcium 9.5 mg/dL (8.4-10.2); Carbon Dioxide 28 mmol/L (22-29); Chloride 108 mmol/L (96-108); Cholesterol 146 mg/dL (<200); Estimated Glomerular Filt Rate > 60; Glucose Fasting 80 mg/dL (60-99); HDL Cholesterol 37 mg/dL (>40); LDL Cholesterol Calculated 76 mg/dL (<100); Potassium 4.2 mmol/L (3.3-5.1); Sodium 140 mmol/L (135-145); Total Protein 6.9 g/dL (6.5-8.0); Triglycerides 166 mg/dL (<150)
[2024-07-02 12:25] LABS: TSH reflex Free T4 1.89 uIU/mL (0.32-4.0)
== END 2024-07-02 06:32 | disposition home or self-care (01) ==
LOC: HO.HMGCLDS 06:31
PROVIDERS: PCP Nurse Practitioner Family; Visit Provider Nurse Practitioner Family
DX: Z00.00 Encounter for general adult medical examination without abnormal findings (principal)
CPT/HCPCS: 36415; 80053; 80061; 81003; 84443; 85025

== ENCOUNTER 2024-08-24 12:25 | Outpatient (AMB) | payer OTHER, SELFPAY ==
--- NOTE | 2024-08-24 13:15 | MHC.OFFWIV ---
Intake Vital Signs 08/24/24 13:25 Height 6 ft 2 in Weight 182 lb BMI 23.4 BP 114/76 Blood Pressure Location Lt brachial Position Sitting Pulse 92 Pulse Source Pulse Oximeter Pulse Oximetry (%) 98 Oxygen Delivery Method Room Air Intake Visit Reasons: EP stiff neck Intake Note: Patient here for stick neck that started this morning. Patient Tobacco Use Status: Never used Tobacco Allergies No Known Allergies [No Known Allergies*] Allergy (Verified 08/24/24 13:25) Do you need a note to return to daycare/school/sports/work: No HPI EP stiff neck HPI Details This is a 49-year-old male patient who presents to the walk-in clinic today with neck muscle stiffness that started this morning. He states that he woke up with this pain. 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 He denies any radiation of pain down arms. States it is on the left side of his neck and down into his upper back muscles. States that he can still move his neck freely without pain, and that it just feels a little stiff. He is currently using a lidocaine patch. He has not taken any other medication for this. [facility] Medical History Umbilical hernia Physical exam Hypercholesteremia Family History Father No problems noted. Mother Skin cancer Maternal Grandmother Colon cancer Social History Housing: Apartment Alcohol intake: current Alcohol intake frequency: a few times a month Patient Tobacco Use Status: Never used Tobacco e-Cigarette/Vaping Use: Never Used Second Hand Smoke Exposure: No Current occupational status: employed Current occupation: maintenance Cognitive needs: No Hearing needs: No Vision needs: No Review of Systems Const All systems reviewed & are unremarkable except as noted in HPI and below Physical Exam Vital Signs: Last Vital Signs Pulse 92 08/24/24 13:25 BP 114/76 08/24/24 13:25 Pulse Ox 98 08/24/24 13:25 Oxygen Delivery Method Room Air 08/24/24 13:25 BMI result Body Mass Index 23.4 Const General: cooperative, healthy appearing, comfortable and no acute distress HEENT Head: Yes normal to inspection Ears: hearing grossly normal bilaterally Neck Neck: Yes full ROM, Yes no lymphadenopathy and Yes no meningeal signs Resp Effort & Inspection: normal respiratory effort Auscultation: clear to auscultation bilaterally Cardio Rate: regular rate Rhythm: regular rhythm Back/Spine/Pelvis Other: Normal cervical range of motion, negative Spurling's, some mild tenderness to palpation over left cervical paraspinal muscles and left trapezius/rhomboids Skin General skin exam: no rashes or lesions noted Neuro General: no meningeal signs Extrem General: Yes capillary refill normal and Yes no clubbing, cyanosis or edema Psych Appearance: grossly normal Mental Status: mental status grossly normal Assessment & Plan Assessment & Plan (1) Strain of left trapezius muscle: Code(s): S46.812A - Strain of other muscles, fascia and tendons at shoulder and upper arm level, left arm, initial encounter Qualifiers: Encounter type: initial encounter Qualified Code(s): S46.812A - Strain of other muscles, fascia and tendons at shoulder and upper arm level, left arm, initial encounter Plan: Recommended NSAIDs (I refilled the patient's diclofenac) and also a short course of cyclobenzaprine at bedtime only. We reviewed indications, use, possible side effects of these medications. I advised heat application and gentle stretching/massage of area. He can continue to utilize lidocaine patches as needed. If he does not improve with time and conservative measures, or if symptoms worsen, he can return to the clinic for further evaluation. He verbalizes understanding and agrees to plan. Work note provided. Medications: New cyclobenzaprine Take 1 tablet at bedtime as needed for muscle pain/spasm 10 mg PO BEDTIME 3 days PRN 3 tabs 0RF muscle spasm S46.812A - Strain of other muscles, fascia and tendons at shoulder and upper arm level, left arm, initial encounter Refilled diclofenac potassium Take with food, decrease use when pain is controlled. 50 mg PO BID 30 tabs 0RF Coding Level of Care Code Est Pt Level 4 (16303) Diagnoses Strain of left trapezius muscle, initial encounter S46.812A Encounter type: initial encounter
[2024-08-24 13:25] VITALS: BP 114/76; PULSE 92; O2SAT 98; BMI 23.4
== END 2024-08-24 14:03 | disposition home or self-care (01) ==
PROVIDERS: PCP Nurse Practitioner Family; Visit Provider Nurse Practitioner Family
DX: S46.812A Strain of other muscles, fascia and tendons at shoulder and upper arm level, left arm, initial encounter (principal)

== ENCOUNTER → 2024-08-24 12:25 | Outpatient (BNVA) | payer OTHER, SELFPAY | PROVIDERS: PCP Nurse Practitioner Family | DX: S46.812A Strain of other muscles, fascia and tendons at shoulder and upper arm level, left arm, initial encounter (principal) | CPT/HCPCS: 99212 ==

== ENCOUNTER 2024-09-13 13:09 | Outpatient (AMB) | payer OTHER, SELFPAY ==
[2024-09-13 13:12] VITALS: BP 130/70; PULSE 89; O2SAT 98; BMI 23.6
--- NOTE | 2024-09-13 13:12 | A.OFFPC_ITS ---
Vital Signs 09/13/24 13:12 Height 6 ft 2 in Weight 184 lb BMI 23.6 BP 130/70 Blood Pressure Location Rt brachial Position Sitting Pulse 89 Pulse Source Pulse Oximeter Pulse Oximetry (%) 98 Oxygen Delivery Method Room Air Intake Visit Reasons: Annual PE Transcript Evaluator Required: No Accompanied by: Self / Same As Patient Allergies No Known Allergies [No Known Allergies*] Allergy (Verified 09/13/24 14:01) Medication List - Last Reconciled 09/13/24 by VANNESA Pyle atorvastatin 20 mg PO DAILY Tobacco use date assessed: 09/13/24 Dental Screening Dental Screen Date: 09/13/24 Did you have a dental visit in the last 12 months?: Yes Did you have a dental problem in the last 6 months where you did not have access to dental care?: No Was dental information given to patient?: Patient has dentist HPI Annual PE HPI Details History of Present Illness The patient is a 49-year-old male presenting with a need for colorectal cancer screening follow-up. He recalls being referred for colon cancer screening and attended the initial visit but did not proceed with the necessary successive appointments due to the absence of reminders or updates from the healthcare team. Despite previously being ordered a Cologuard test the preceding year, he did not execute it. The patient is aware of the significance of completing this screening to help detect any potential abnormalities early. small amt of protein in urine, will repeat after proper hydration. Health Maintenance - Reordering of a Cologuard test for col orectal cancer screening. Social History Review of Systems - Gastrointestinal: Reports abdominal pa in and constipation. - Respiratory: Reports shortness of heather th. - Psychiatric: Denies suicidal ideation or homicidal ideation. Physical Exam General: Cooperative, healthy appearing, comfortable, no acute distress and well developed Orientation: Patient oriented x3 Limitations: No limitations Head: Normal to inspection Ears: Hearing grossly normal bilaterally Nose: Normal external nose present Face and sinus: Normal facial exam Eyes: Appearance normal, both eyes and all related structures Neck: Normal visual inspection and Yes full ROM Respiratory: Normal respiratory effort and able to speak in complete sentences. Clear to auscultation bilaterally Cardiovascular: Regular rate and rhythm. Normal S1 and S2 GI: Normal to inspection. Soft to palpation and nontender : Testicles without masses/lesions and no hernias appreciated Skin: No rashes or lesions noted Neuro: Patient oriented x3 Extremities: Normal to inspection Results Plan I will reorder the Cologuard test for colorectal cancer screening, stressing the importance of completing it this time to aid in early detection and timely intervention to address potential anomalies. This non-invasive test is essential for the patient's preventive health strategy. Further follow-up will be determined by the outcomes of this screening procedure. [facility] Medical History Umbilical hernia Physical exam Hypercholesteremia Surgical History No pertinent past surgical history Family History Father No problems noted. Mother Skin cancer Maternal Grandmother Colon cancer Social History Housing: Apartment Alcohol intake: current Alcohol intake frequency: a few times a month Patient Tobacco Use Status: Never used Tobacco e-Cigarette/Vaping Use: Never Used Second Hand Smoke Exposure: No Current occupational status: employed Current occupation: maintenance Cognitive needs: No Hearing needs: No Vision needs: No Questionnaire PHQ-9 Over the last 2 weeks, how often have you been bothered by any of the following problems? 1. Little interest or pleasure in doing things: not at all 2. Feeling down, depressed, or hopeless: not at all 3. Trouble falling or staying asleep, or sleeping too much: not at all 4. Feeling tired or having little energy: not at all 5. Poor appetite or overeating: not at all 6. Feeling bad about yourself - or that you are a failure or have let yourself or your family down: not at all 7. Trouble concentrating on things, such as reading the newspaper or watching television: not at all 8. Moving or speaking so slowly that other people could have noticed. Or the opposite - being so fidgety or restless that you have been moving around a lot more than usual: not at all 9. Thoughts that you would be better off or of hurting yourself in some way: not at all Total score: 0 Depression Screening Interpretation: Negative Depression Screening Done: Yes 22201 - PHQ-9 Billing: Yes Source: Developed by Drs. Willian Amin, Sayra Mccabe, Osmar Archer and colleagues, with an educational osito from [employer]. Thrive Questionnaire Date Thrive assessed: 09/13/24 I am a: Patient What is your living situation today?: I have a steady place to live Within the past 12 months, did the food you bought not last and you didn't have the money to get more?: Never true Within the past 12 months, did you worry whether your food would run out before you got money to buy more?: Never true Do you have trouble paying for medicines?: No Do you have trouble getting transportation to medical appointments?: No Do you have trouble paying your heating and electricity bill?: No Do you have trouble taking care of your child, family member or friend?: No Do you have trouble with day-to-day activities such as bathing, preparing meals, shopping, managing finances, etc.?: No Are you currently unemployed and looking for a job?: No Are you interested in more education?: No Please select the resources that you would like help with: None Currently or been in a relationship where the following occur: No concerns reported THRIVE Score: 0 AUDIT C Alcohol Use Questionnaire (AUDIT-C) 1. How often do you have a drink containing alcohol?: Never 3. How often do you have six or more drinks on one occasion?: Never Total Score: 0 Score Reviewed/Action Taken: Yes RYAN-7 AMB Questionnaire RYAN-7 Date RYAN - 7 assessed: 09/13/24 Feeling nervous, anxious, or on edge: 0 = Not at all Not being able to stop or control worryin = Not at all Worrying too much about different things: 0 = Not at all Trouble relaxin = Not at all Being so restless that it is hard to sit still: 0 = Not at all Becoming easily annoyed or irritable: 0 = Not at all Feeling afraid as if something awful might happen: 0 = Not at all Total RYAN-7 score (0-4 normal; 5-9 mild; 10-14 moderate; 15-21 severe): 0 Source: Developed by Sayra Ross Kurt Kroenke and colleagues, with an educational osito from [employer]. RYAN-7 Assessment Billing RYAN-7 Assessment Tool: RYAN-7 Assessment 42114 Physical exam (Primary Care) Vital Signs: Last Vital Signs Pulse 89 09/13/24 13:12 BP 130/70 09/13/24 13:12 Pulse Ox 98 09/13/24 13:12 Oxygen Delivery Method Room Air 09/13/24 13:12 BMI result Body Mass Index 23.6 Tobacco/Smoking Status: Tobacco use Status Tobacco use date assessed 09/13/24 09/13/24 13:14 Patient Tobacco Use Status Never used Tobacco 09/13/24 13:14 e-Cigarette/Vaping Use Never Used 09/13/24 13:14 PHQ-9: PHQ-9 Score PHQ-9: Total score 0 09/13/24 13:18 Depression Screening Interpretation: Negative Thrive Assessment: Date of Thrive Assessment Date Thrive assessed 09/13/24 09/13/24 13:14 Currently or been in a relationship where the following occur: No concerns reported Coding Level of Care Code Est Pt Prev Care 40-64y(39149) Diagnoses Physical exam Z00.00 Screening for prostate cancer Z12.5 Proteinuria R80.9 Additional Codes RYAN-7 Assessment Billing - RYAN-7 Assessment Tool: RYAN-7 Assessment 61661 ([id number]) PHQ-9 - 67505 - PHQ-9 Billing: Yes ([id number]) Assessment & Plan Assessment & Plan (1) Physical exam: Code(s): Z00.00 - Encounter for general adult medical examination without abnormal findings Category: Medical (2) Screening for prostate cancer: Code(s): Z12.5 - Encounter for screening for malignant neoplasm of prostate Category: Medical (3) Proteinuria: Code(s): R80.9 - Proteinuria, unspecified Category: Medical Plan . Orders: Orders 2 Prostate Specific Antigen Scr Today Z12.5 - Encounter for screening for malignant neoplasm of prostate UA CC w/rflx Micro + Cult Today R80.9 - Proteinuria, unspecified Referrals Cologuard Test Z12.11 - Encounter for screening for malignant neoplasm of colon, Z12.12 - Encounter for screening for malignant neoplasm of rectum
== END 2024-09-13 14:16 | disposition home or self-care (01) ==
LOC: HO.HMCC 13:10
PROVIDERS: PCP Nurse Practitioner Family; Visit Provider Nurse Practitioner Family
DX: Z00.00 Encounter for general adult medical examination without abnormal findings (principal); Z12.5 Encounter for screening for malignant neoplasm of prostate; R80.9 Proteinuria, unspecified

== ENCOUNTER → 2024-09-13 13:09 | Outpatient (BNVA) | payer OTHER, SELFPAY | PROVIDERS: PCP Nurse Practitioner Family; Visit Provider Nurse Practitioner Family | DX: Z00.00 Encounter for general adult medical examination without abnormal findings (principal); R80.9 Proteinuria, unspecified | CPT/HCPCS: 96127; 99396 ==

== ENCOUNTER 2024-09-14 13:46 | Outpatient (REF) | payer OTHER, SELFPAY ==
[2024-09-14 16:03] LABS: Appearance Urine Clear; Color Urine Yellow; Glucose Urine UA Negative (Negative); Leukocyte Esterase Urine Trace (Negative); Nitrite Urine Negative (Negative); UMIC TRIGGER UACC YES; Urine Blood Negative (Negative); Urine Ketones Trace mg/dL (Negative); Urine Protein Negative (Neg-Trace)
[2024-09-14 16:34] LABS: Prostate Specific Antigen Scr 0.52 ng/mL (<0.05-4.0)
[2024-09-14 16:35] LABS: Bacteria Urine None Seen (None Seen); Hyaline Casts Urine 0-2 /LPF (0-2); RBC Urine 0-2 /HPF (0-2); Squamous Epithelial Cell Urine 0-2 /HPF (0-2); WBC Urine 0-5 /HPF (0-5)
== END 2024-09-14 13:47 | disposition home or self-care (01) ==
LOC: HO.HMGCLDS 13:46
PROVIDERS: PCP Nurse Practitioner Family; Visit Provider Nurse Practitioner Family
DX: Z12.5 Encounter for screening for malignant neoplasm of prostate (principal); R80.9 Proteinuria, unspecified
CPT/HCPCS: 36415; 81001; 81003; 84153

== ENCOUNTER 2024-11-04 12:57 | Outpatient (AMB) | payer OTHER, SELFPAY ==
[2024-11-04 13:15] VITALS: BP 116/72; PULSE 81; TEMP 36.8; O2SAT 98; BMI 23.2
--- NOTE | 2024-11-04 13:15 | MHC.OFFWIV ---
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 - The lesion began last week and is located on the eyelid, with no associated discharge, crusting, tearing, blurry vision, or pain. - Environmental exposure to heat during camping may have contributed to the condition. - He denies fever, chills, cold symptoms, GUTIERREZ, visual changes, FB, eye pain, or contacts. Physical Exam General: Cooperative, healthy appearing, comfortable, no acute distress and well developed Orientation: Patient oriented x3 Limitations: No limitations Eyes: Appearance normal, both eyes and all related structures. PERRLA. EOMI. Small erythematous hard, round lesion noted on the left lower lid. No discharge, crusting, or tearing. Respiratory: Normal respiratory effort and able to speak in complete sentences. Clear to auscultation bilaterally Cardiovascular: Regular rate and rhythm. Normal S1 and S2 Skin: No rashes or lesions noted Patient was informed and verbally consented to the use of an ambient scribe for clinic note documentation during this visit. [facility] Medical History Umbilical hernia Physical exam Hypercholesteremia Surgical History No pertinent past surgical history Family History Father No problems noted. Mother Skin cancer Maternal Grandmother Colon cancer Social History Housing: Apartment Alcohol intake: current Alcohol intake frequency: a few times a month Patient Tobacco Use Status: Never used Tobacco e-Cigarette/Vaping Use: Never Used Second Hand Smoke Exposure: No Current occupational status: employed Current occupation: maintenance Cognitive needs: No Hearing needs: No Vision needs: No Review of Systems Const All systems reviewed & are unremarkable except as noted in HPI and below Physical Exam Vital Signs: Last Vital Signs Temp 98.3 F 11/04/24 13:15 Pulse 81 11/04/24 13:15 BP 116/72 11/04/24 13:15 Pulse Ox 98 11/04/24 13:15 Oxygen Delivery Method Room Air 11/04/24 13:15 BMI result Body Mass Index 23.2 Assessment & Plan Assessment & Plan (1) Hordeolum of right eye: Code(s): H00.013 - Hordeolum externum right eye, unspecified eyelid Qualifiers: Hordeolum type: externum Eyelid: lower Qualified Code(s): H00.012 - Hordeolum externum right lower eyelid Plan Plan - Prescribe antibiotic ointment for the eyelid lesion. - Recommend warm compresses to the eyelid. - Advise follow-up with an parts clerk plant maintenance if the lesion persists. Medications: New erythromycin Apply to left eye 4 times a day while awake 0.5 inches ophthalmic (eye) QID 3.5 grams 0RF Coding Level of Care Code Est Pt Level 3 (27978) Diagnoses Hordeolum externum of right lower eyelid H00.012 Hordeolum type: externum Eyelid: lower
== END 2024-11-04 13:46 | disposition home or self-care (01) ==
PROVIDERS: PCP Nurse Practitioner Family; Visit Provider Physician Assistant Medical
DX: H00.012 Hordeolum externum right lower eyelid (principal)

== ENCOUNTER → 2024-11-04 12:57 | Outpatient (BNVA) | payer OTHER, SELFPAY | PROVIDERS: PCP Nurse Practitioner Family; Visit Provider Physician Assistant Medical | DX: H00.012 Hordeolum externum right lower eyelid (principal) | CPT/HCPCS: 99212 ==

== ENCOUNTER 2024-12-24 10:06 | Outpatient (AMB) | payer OTHER, SELFPAY ==
[2024-12-24 10:49] VITALS: BP 122/72; PULSE 75; RESP 16; TEMP 36.4; O2SAT 98; BMI 23.6
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
== END 2024-12-24 12:17 | disposition home or self-care (01) ==
PROVIDERS: PCP Nurse Practitioner Family; Visit Provider Physician Assistant Medical
DX: S92.422A Displaced fracture of distal phalanx of left great toe, initial encounter for closed fracture (principal)

== ENCOUNTER 2024-12-24 10:06 | Outpatient (REF) | payer OTHER, SELFPAY ==
--- NOTE | ~2024-12-24 | XR_ITS ---
CLINICAL HISTORY: M79.675 - Pain in left toe(s) --- Additional Notes or Special Instructions: Left great toe pain, ecchymosis and swelling after striking his foot in steel toed sneaker. 3 view left 1st toe Comparison: None provided Findings: No dislocation. No significant loss of joint space or osteophytes. No erosions. No radiopaque foreign body. IMPRESSION: Acute slightly displaced fracture at the dorsal medial base of the distal phalanx. This document has been electronically signed by: Chuyita Rodriguez MD on 12/24/2024 13:15:39
== END 2024-12-24 10:07 | disposition home or self-care (01) ==
LOC: HO.HMGCX 10:06
PROVIDERS: PCP Nurse Practitioner Family; Visit Provider Physician Assistant Medical
DX: S92.422A Displaced fracture of distal phalanx of left great toe, initial encounter for closed fracture (principal); W01.0XXA Fall on same level from slipping, tripping and stumbling without subsequent striking against object, initial encounter; Y93.89 Activity, other specified; Y92.89 Other specified places as the place of occurrence of the external cause
CPT/HCPCS: 73660; 99212

== ENCOUNTER → 2024-12-24 11:07 | Outpatient (BNV) | payer OTHER, SELFPAY | PROVIDERS: PCP Nurse Practitioner Family; Visit Provider Radiology Diagnostic Radiology | DX: S92.422A Displaced fracture of distal phalanx of left great toe, initial encounter for closed fracture (principal) | CPT/HCPCS: 73660 ==

== ENCOUNTER 2024-12-26 08:01 | Outpatient (AMB) | payer OTHER, SELFPAY ==
[2024-12-26 08:09] VITALS: BP 138/90; PULSE 85; RESP 16; TEMP 36.6; O2SAT 98
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
== END 2024-12-26 08:56 | disposition home or self-care (01) ==
PROVIDERS: PCP Nurse Practitioner Family; Visit Provider Physician Assistant Medical
DX: S92.422D Displaced fracture of distal phalanx of left great toe, subsequent encounter for fracture with routine healing (principal); T14.8XXA Other injury of unspecified body region, initial encounter

== ENCOUNTER → 2024-12-26 08:01 | Outpatient (BNVA) | payer OTHER, SELFPAY | PROVIDERS: PCP Nurse Practitioner Family; Visit Provider Physician Assistant Medical | DX: S92.422S Displaced fracture of distal phalanx of left great toe, sequela (principal); S90.42 Blister (nonthermal) of toe; X58.XXXS Exposure to other specified factors, sequela | CPT/HCPCS: 99212 ==

== ENCOUNTER 2025-01-06 13:27 | Outpatient (AMB) | payer OTHER, SELFPAY ==
[2025-01-06 13:34] VITALS: BP 128/82; PULSE 85; TEMP 36.8; O2SAT 97; BMI 23.7
--- NOTE | 2025-01-06 13:34 | MHC.OFFWIV ---
Intake Vital Signs 01/06/25 13:34 Height 6 ft 2 in Weight 185 lb BMI 23.7 BP 128/82 Blood Pressure Location Lt brachial Position Sitting Pulse 85 Pulse Source Pulse Oximeter Temp 98.2 F Temp Source Oral Pulse Oximetry (%) 97 Oxygen Delivery Method Room Air Intake Visit Reasons: EP Cough Intake Note: pt presents with need for plan of care ahead of potential impending cold Patient Tobacco Use Status: Never used Tobacco Allergies No Known Allergies (No Known Allergies*) Allergy (Verified 01/06/25 13:35) Do you need a note to return to daycare/school/sports/work: No HPI HPI Comments History of Present Illness Details This is a 49-year-old male with a past medical history of hyperlipidemia presenting for evaluation of ?a change in weather?. Patient states it was very cold when he got up to go to work at [employer] this morning and he is concerned that he may be coming down with a cold. Patient denies having any fevers, chills, headache, sore throat, ear pain, cough or shortness of breath. Patient is inquiring about any medications he can take to prevent the onset of a cold. [facility] Medical History (Updated 01/06/25 @ 14:08 by Samia Perrin PA-C) Fracture of left great toe Umbilical hernia Physical exam Hypercholesteremia Surgical History No pertinent past surgical history Family History Father No problems noted. Mother Skin cancer Maternal Grandmother Colon cancer Social History Housing: Apartment Alcohol intake: current Alcohol intake frequency: a few times a month Patient Tobacco Use Status: Never used Tobacco e-Cigarette/Vaping Use: Never Used Second Hand Smoke Exposure: No Current occupational status: employed Current occupation: maintenance Cognitive needs: No Hearing needs: No Vision needs: No Review of Systems Const All systems reviewed & are unremarkable except as noted in HPI and below Reports no additional complaints, Denies body aches, Denies chills, Denies fatigue and Denies fever(s) Eyes Reports no additional complaints ENT Reports no additional complaints, Denies otalgia, Denies sinus pressure and Denies sore throat Card Denies chest pain and Denies dyspnea Resp Denies dyspnea GI Denies diarrhea, Denies nausea and Denies vomiting Reports no additional complaints Musc Reports no additional complaints, Denies myalgias and Denies muscle weakness Skin/Breast Reports system reviewed and no additional complaints, except as documented Neuro Reports no additional complaints Psych Reports no additional complaints Endo Reports no additional complaints and Denies fatigue Channing/Lymph Reports no additional complaints Aller/Immun Reports no additional complaints Physical Exam Vital Signs: Last Vital Signs Temp 98.2 F 01/06/25 13:34 Pulse 85 01/06/25 13:34 BP 128/82 01/06/25 13:34 Pulse Ox 97 01/06/25 13:34 Oxygen Delivery Method Room Air 01/06/25 13:34 BMI result Body Mass Index 23.7 Const General: cooperative, healthy appearing, comfortable, no acute distress, well developed, alert, awake and Physically active; No ill appearing or lethargic Nutritional Appearance: well nourished Orientation/consciousness: No lethargic Limitations: no limitations HEENT Head: Yes normal to inspection and Yes normocephalic Ears: hearing grossly normal bilaterally, external ears normal, TM's normal bilaterally and EAC's normal General nose exam: Normal external nose present Face and sinus: Yes normal facial exam and Yes face symmetric Mouth: Normal oral and palatal mucosa present, tongue normal, oropharynx normal and moist mucous membranes Throat: Yes posterior oropharynx normal and No postnasal drainage Eyes General: appearance normal, both eyes and all related structures Neck Lymphatic: no lymphadenopathy noted Resp Effort & Inspection: normal respiratory effort, respiratory effort not decreased, no nasal flaring and not tachypneic Auscultation: clear to auscultation bilaterally Cardio Rate: regular rate Rhythm: regular rhythm Skin General skin exam: no rashes or lesions noted Psych Appearance: grossly normal Mental Status: mental status grossly normal Speech and movement: Normal speech and movement present Affect: Animated affect present and Anxious affect present Attitude: cooperative Thought process: Normal thought process present Thought content: Normal thought content present Insight: Fair insight present (Psych) Judgement: Fair judgement present (Psych) Assessment & Plan Assessment & Plan (1) Anxiety about treatment: Comment: Patient is neurologically intact and in no acute distress. Patient has no physical complaints at this time and is inquiring about future care if he is to develop an upper respiratory infection. Patient is reassured during this visit. Code(s): R45.89 - Other symptoms and signs involving emotional state Plan: Increase clear fluids and rest throughout the weekend, multivitamin and/or vitamin-C daily. Patient is in agreement with this plan of care and states that he is not due back to work until Thursday morning. Coding Level of Care Code Est Pt Level 3 (19786) Diagnoses Anxiety about treatment R45.89 Time Spent (min) 20
== END 2025-01-06 14:05 | disposition home or self-care (01) ==
PROVIDERS: PCP Nurse Practitioner Family; Visit Provider Physician Assistant
DX: R45.89 Other symptoms and signs involving emotional state (principal)

== ENCOUNTER → 2025-01-06 13:27 | Outpatient (BNVA) | payer OTHER, SELFPAY | PROVIDERS: PCP Nurse Practitioner Family; Visit Provider Physician Assistant | DX: E78.5 Hyperlipidemia, unspecified (principal); R45.89 Other symptoms and signs involving emotional state | CPT/HCPCS: 99212 ==

== ENCOUNTER 2025-01-07 09:03 | Outpatient (AMB) | payer OTHER, SELFPAY ==
[2025-01-07 09:04] VITALS: BP 114/80; PULSE 90; RESP 16; TEMP 36.8; O2SAT 97; BMI 22.9
--- NOTE | 2025-01-07 09:04 | MHC.OFFWIV ---
Intake Vital Signs 01/07/25 09:04 Height 6 ft 2 in Weight 178 lb BMI 22.9 BP 114/80 Blood Pressure Location Rt brachial Position Sitting Respiration 16 Pulse 90 Pulse Source Pulse Oximeter Temp 98.2 F Temp Source Oral Pulse Oximetry (%) 97 Oxygen Delivery Method Room Air Intake Visit Reasons: ep losing voice Intake Note: Pt is here today c/o losing his voice: pt denies no sorethroat or coughing Patient Tobacco Use Status: Never used Tobacco Allergies No Known Allergies (No Known Allergies*) Allergy (Verified 01/07/25 09:04) HPI HPI Comments History of Present Illness Details This is a 49-year-old male with a past medical history of hyperlipidemia presenting for evaluation because he is concerned that he may be losing his voice. Patient denies having any physical complaints at this time including fevers, chills, sore throat, hoarseness, ear pain, difficulty swallowing, cough or shortness of breath. The patient states last night he drank a lot of water and went to bed early because he was concerned a cold may be coming on. Patient does not work over the weekend in his next day of work at [employer] Thursday. Patient states he feels prepared to work on Thursday at this time. [facility]LY [facility] Medical History (Updated 01/07/25 @ 09:18 by Samia Perrin PA-C) Fracture of left great toe Umbilical hernia Physical exam Hypercholesteremia Surgical History No pertinent past surgical history Family History Father No problems noted. Mother Skin cancer Maternal Grandmother Colon cancer Social History Housing: Apartment Alcohol intake: current Alcohol intake frequency: a few times a month Patient Tobacco Use Status: Never used Tobacco e-Cigarette/Vaping Use: Never Used Second Hand Smoke Exposure: No Current occupational status: employed Current occupation: maintenance Cognitive needs: No Hearing needs: No Vision needs: No Review of Systems Const All systems reviewed & are unremarkable except as noted in HPI and below Reports no additional complaints, Denies body aches, Denies chills and Denies fever(s) Eyes Reports no additional complaints ENT Reports no additional complaints Card Reports no additional complaints and Denies dyspnea Resp Reports no additional complaints, Denies cough and Denies dyspnea GI Reports no additional complaints Reports no additional complaints Musc Reports no additional complaints and Denies myalgias Skin/Breast Reports system reviewed and no additional complaints, except as documented Neuro Reports no additional complaints Psych Reports no additional complaints Endo Reports no additional complaints Channing/Lymph Reports no additional complaints Physical Exam Const General: cooperative, healthy appearing, comfortable, no acute distress, well developed, alert, awake and Physically active; No diaphoretic, ill appearing or lethargic Nutritional Appearance: average body habitus Orientation/consciousness: patient oriented x3 and No lethargic Limitations: no limitations HEENT Head: Yes normal to inspection and Yes normocephalic Ears: hearing grossly normal bilaterally, external ears normal, TM's normal bilaterally and EAC's normal General nose exam: Normal external nose present Face and sinus: Yes normal facial exam Mouth: Normal oral and palatal mucosa present, moist mucous membranes and breath no malodorous Throat: Yes posterior oropharynx normal and No postnasal drainage Resp Effort & Inspection: normal respiratory effort, able to speak in complete sentences, no audible wheezes, no cough, not labored and no respiratory distress Auscultation: clear to auscultation bilaterally Cardio Rate: regular rate Rhythm: regular rhythm Skin General skin exam: no rashes or lesions noted Neuro General: patient oriented x3 Psych Appearance: grossly normal Mental Status: mental status grossly normal Affect: Animated affect present and Anxious affect present Insight: Fair insight present (Psych) Judgement: Fair judgement present (Psych) Assessment & Plan Assessment & Plan (1) Anxiety about treatment: Comment: Patient is neurologically intact, pleasant and in no acute distress. Patient has no physical complaints at this time and is inquiring about future care if he is to develop hoarseness or an upper respiratory infection. Patient is reassured during this visit. Code(s): R45.89 - Other symptoms and signs involving emotional state Plan: Increase clear fluids daily, patient plans to go out this in early August. Follow up only as needed. Coding Level of Care Code Est Pt Level 3 (05601) Diagnoses Anxiety about treatment R45.89 Time Spent (min) 20
== END 2025-01-07 09:20 | disposition home or self-care (01) ==
PROVIDERS: PCP Nurse Practitioner Family; Visit Provider Physician Assistant
DX: R45.89 Other symptoms and signs involving emotional state (principal)

== ENCOUNTER → 2025-01-07 09:03 | Outpatient (BNVA) | payer OTHER, SELFPAY | PROVIDERS: PCP Nurse Practitioner Family; Visit Provider Physician Assistant | DX: R45.89 Other symptoms and signs involving emotional state (principal); E78.5 Hyperlipidemia, unspecified | CPT/HCPCS: 99212 ==